=== PATIENT | male | born 1945 | race Caucasian/White ===

== ENCOUNTER 2016-06-07 15:07 | Inpatient (IN) | payer OTHER ==
[~2016-06-07] VITALS: Ht 182.9 cm; Wt 110.7 kg
--- NOTE | ~2016-06-07 | HC ---
[facility] [place] [address] CONSULTATION Name: MICHELLE TORRES Room #: 305-P ADM IN M.R.#: [id number] Admission: 06/07/16 Attend Phys: Seth Chamberlain MD Discharge: Date of : 49 Report #: [id number] THIS REPORT FOR: //name// CC: Singh Chamberlain PRIMARY PHYSICIAN: Singh Armenta DO REFERRAL PHYSICIAN: Isaac Summers MD [facility] REASON FOR REFERRAL: Dyspnea. HISTORY OF PRESENT ILLNESS: The patient is a 70-year-old white male who presented to the emergency room on June 07, with progressive dyspnea. He was admitted for pneumonia. With persistent of dyspnea, a pulmonary consultation was requested. The patient states that he has smoked about a pack a day for most of his life. He has never been diagnosed with chronic lung disease. He does have the early pneumonias and bronchitis, which he gets treated for. About 5 years ago, he was on oxygen temporarily. This was related to other than his lung condition. For the past 5 days, he has noticed progressive dyspnea. Otherwise, denies any fever, chest pain, or productive cough. Otherwise, he denies any history of chronic productive cough. Denies any history of childhood asthma or chronic bronchitis. PAST MEDICAL HISTORY: Notable for peripheral vascular disease, diabetes mellitus type 2, undergoing stent placement in both lower extremities, coronary artery disease with ischemic cardiomyopathy, hypertension, and hyperlipidemia. PAST SURGICAL HISTORY: As mentioned above. ALLERGIES: None to medications. CURRENT MEDICATIONS: List reviewed, include diuretics, aspirin, atorvastatin, Plavix, digoxin, Lasix, lisinopril, nebivolol, DuoNebs, enoxaparin, and Levaquin. FAMILY HISTORY: Notable for heart disease in the father. Mother, she , I believe of old age. SOCIAL HISTORY: He is , has 2 children in good health. 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 The patient states he has been exposed [facility] [address] [place] [address] CONSULTATION Name: MICHELLE TORRES Room #: 305-P [facility] IN ..#: [id number] Admission: 06/07/16 Attend Phys: Seth Chamberlain MD Discharge: Date of : 49 Report #: [id number] to dust including asbestos while working in construction. He drinks occasionally. The patient is retired. REVIEW OF SYSTEMS: As mentioned above, otherwise 10-point system review negative. PHYSICAL EXAMINATION: GENERAL: He is awake, alert, in no apparent distress. VITAL SIGNS: Temperature is 97.4 degrees Fahrenheit, pulse is 71, respiratory rate is 22, blood pressure 122/57 mmHg, saturation 92% on supplemental O2 at 2 liters. HEENT: Normocephalic, atraumatic. NECK: Supple without lymphadenopathy or thyromegaly. CHEST: Breath sounds are moderate with mild expiratory wheezes and coarse breath sounds. CARDIOVASCULAR: Normal S1, S2. There are no murmurs or gallops. There is no JVD. There is no carotid bruit. Pulses are 2+/4+ bilaterally. ABDOMEN: Soft, nontender, no organomegaly or masses. GENITOURINARY: Deferred. RECTAL: Deferred. EXTREMITIES: There is no edema, cyanosis, or clubbing. LABORATORY DATA: Chest x-ray on admission revealed patchy infiltrates. Procalcitonin on admission was 0.1. NT-pro brain natriuretic peptide 2318. Sodium 139, potassium 4.0, chloride 104, CO2 of 27, BUN is 31, creatinine was normal, today is 1.5. WBC 6,500, hemoglobin is 16.3, and platelets are mildly decreased. Albumin 2.6. IMPRESSION: 1. Dyspnea in this 70-year-old white male. He is felt to have pneumonia. He has smoked most of his life. Examination today shows bronchospasm. Suspect part of this may be is likely related to underlying chronic obstructive pulmonary disease with exacerbation. 2. Infiltrates, pneumonia. 3. Likely chronic obstructive pulmonary disease with exacerbation. 4. History of coronary artery disease. 5. Peripheral vascular disease. RECOMMENDATIONS: Agree with current antibiotics, bronchodilators and treatment plans. We will add prednisone to be taken 40 mg once a day for 5 days. The patient will also benefit from inhaled bronchodilators as an outpatient. He states he has never had a pulmonary function, we would recommend this, which can be done as an outpatient. We also discussed the importance of smoke cessation. [address] [address] CONSULTATION Name: MICHELLE TORRES Room #: 305-P ADM IN M.R.#: [id number] Admission: 06/07/16 Attend Phys: Seth Chamberlain MD Discharge: Date of : 49 Report #: [id number] Agree with oximetry, along with saturation on room air. The patient may need oxygen temporarily. Otherwise, the patient is improved from pulmonary standpoint. He can probably be discharged tomorrow if he is stable. I will be happy to see the patient in followup in the office in approximately 2-4 weeks following discharge. Thank you for this consultation. <ELECTRONICALLY SIGNED> By: Koby Rojas MD 06/10/16 1606 1158 1629 Koby Rojas MD /nt
[~2016-06-07 15:07] MED LIST: ACCUPRIL40 MG PO; ASPIR-TRIN325 MG PO; ASPIRIN325; BYSTOLIC10 MG PO; CIALIS20 MG PO; CO Q-1010 MG PO; FISHOIL; FUROSEMIDE 40 M40 M1 PO; GLUCOPHAGE1000 MG PO; GLUCOSAMIN-CHO1 EACH PO; GLYBURIDE OR; HUMALOG100 UNIT/1 SQ; HYDROCODON-ACE1 EAC8 PO; LANOXIN 0.250.25 MG PO; LANTUS SC; LASIX 40 MG TAB40 M2 PO; LEVAQUIN 750 M750 MG PO; LIPITOR40 MG PO; METFORMIN HCL500 MG PO; MULTIPLE VITAM1 EAC3 PO; NAPROSYN500 MG PO; NATURAL VITA100 UNIT PO; NATURAL VITAMI500 MG; OXYBUTYNIN 5 MG5 M1 OR; PLAVIX 75 MG TA75 M1 PO; POTASSIUM20 PO; RELAFEN750 MG PO; TRILIPIX135 MG PO; VASCEPA1 GM PO; VESICARE10 M1 PO; VYTORIN 10-401 EACH PO; ZOLOFT100 MG PO
[2016-06-07 20:00] VITALS: BP 143/79
[2016-06-08] VITALS: BP 124/67
[2016-06-08 04:00] VITALS: BP 131/60
[2016-06-08 05:27] LABS: HEMATOCRIT 46.5 % (42.0-52.0); HEMOGLOBIN 15.9 gm/dL (14.0-18.0); MCH 33.1 pg (26.0-34.0); MCHC 34.2 g/dL (28.0-37.0); MCV 96.6 fL (80.0-100.0); RBC 4.81 mil/uL (4.50-6.00); RDW 15.7 % (10.5-14.5)
[2016-06-08 05:47] LABS: ALBUMIN 2.6 g/dL (3.4-5.0); CREATININE 1.1 mg/dL (0.7-1.3); POTASSIUM 3.7 mmol/L (3.5-5.1); TOTAL BILIRUBIN 0.9 mg/dL (<0.1-1.0); TOTAL PROTEIN 7.1 g/dL (6.4-8.2)
[2016-06-08 08:06] VITALS: BP 146/65
[2016-06-08 15:53] VITALS: BP 110/50
[2016-06-08 19:40] VITALS: BP 123/65
[2016-06-09 03:40] VITALS: BP 119/62
[2016-06-09 06:08] LABS: HEMATOCRIT 48.2 % (42.0-52.0); HEMOGLOBIN 16.3 gm/dL (14.0-18.0); MCH 32.9 pg (26.0-34.0); MCHC 33.9 g/dL (28.0-37.0); RBC 4.97 mil/uL (4.50-6.00); RDW 15.4 % (10.5-14.5); WBC 6.5 thou/uL (4.0-11.0)
[2016-06-09 06:32] LABS: CALCIUM 9.6 mg/dL (8.5-10.1); CREATININE 1.5 mg/dL (0.7-1.3)
[2016-06-09 07:55] VITALS: BP 122/57
[2016-06-09 16:01] VITALS: BP 118/44
[2016-06-09 19:50] VITALS: BP 129/52
[2016-06-10 04:10] VITALS: BP 130/59
[2016-06-10 07:56] VITALS: BP 139/65
[2016-06-10 11:47] LABS: CALCIUM 9.1 mg/dL (8.5-10.1); CREATININE 1.4 mg/dL (0.7-1.3); POTASSIUM 4.5 mmol/L (3.5-5.1)
[2016-06-10] MEDS ORDERED: LEVAQUIN 750 M750 MG PO (12:32)
[2016-06-10 13:13] VITALS: BP 139/65
[2016-06-14 22:08] LABS: INFLUENZA B Negative (Negative); METAPNEUMOVIRUS Negative (Negative)
== END 2016-06-10 16:18 | disposition home or self-care (01) | DRG 177 ==
LOC: 3N 15:07
PROVIDERS: Hospitalist; Internal Medicine
DX: J69.0 Pneumonitis due to inhalation of food and vomit (principal); J96.21 Acute and chronic respiratory failure with hypoxia; I50.23 Acute on chronic systolic (congestive) heart failure; E43 Unspecified severe protein-calorie malnutrition; I42.8 Other cardiomyopathies; I11.0 Hypertensive heart disease with heart failure; E11.51 Type 2 diabetes mellitus with diabetic peripheral angiopathy without gangrene; I25.10 Atherosclerotic heart disease of native coronary artery without angina pectoris; E78.5 Hyperlipidemia, unspecified; F17.210 Nicotine dependence, cigarettes, uncomplicated; I65.29 Occlusion and stenosis of unspecified carotid artery; F32.9 Major depressive disorder, single episode, unspecified; E78.00 Pure hypercholesterolemia, unspecified; J44.9 Chronic obstructive pulmonary disease, unspecified; Z79.899 Other long term (current) drug therapy; Z95.5 Presence of coronary angioplasty implant and graft; Z79.82 Long term (current) use of aspirin; Z85.828 Personal history of other malignant neoplasm of skin; Z82.49 Family history of ischemic heart disease and other diseases of the circulatory system
CPT/HCPCS: 10795

== ENCOUNTER → 2016-11-08 | Outpatient (CLI) | payer OTHER | LOC: MRI 11-02 08:39 | DX: M51.36 Other intervertebral disc degeneration, lumbar region (principal) ==

== ENCOUNTER → 2016-12-14 | Outpatient (CLI) | payer OTHER | LOC: RAD 16:25 | DX: M25.551 Pain in right hip (principal) ==

== ENCOUNTER 2018-02-08 10:41 | Inpatient (IN) | payer OTHER ==
[~2018-02-08] VITALS: Ht 182.9 cm; Wt 50.9 kg
--- NOTE | ~2018-02-08 | EKG ---
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1945 Requested By: Melissa Patel Order Number: [id number] MD: Fritz Juarez Measurements Intervals [place] Rate: 101 P: 48 AL: 164 QRS: -1 QRSD: 123 T: 96 QT: 361 QTc: 468 Interpretive Statements Sinus tachycardia Atrial premature complex Incomplete Left bundle branch block Compared to ECG 01/25/2018 16:37:35 Atrial premature complex(es) now present Electronically Signed On 02-08-2018 16:31:17 RESEARCH LIBRARIAN by Fritz Juarez [email or web address] <ELECTRONICALLY SIGNED> By: Fritz Juarez MD 02/08/18 1631 110 Fritz Juarez MD /EPI
--- NOTE | ~2018-02-08 | HC ---
[facility] [place] [address] CONSULTATION Name: MICHELLE TORRES Room #: 418-P ADM IN M.R.#: [id number] Admission: 02/08/18 Attend Phys: Eliza Holguin MD Discharge: Date of : 49 Report #: [id number] THIS REPORT FOR: //name// CC: Singh Holguin DATE OF SERVICE: 02/08/2018 REFERRAL PHYSICIAN: Dr. Holguin. REASON FOR REFERRAL: Dyspnea. HISTORY OF PRESENT ILLNESS: The patient is a 72-year-old white male who is admitted with progressive dyspnea. A pulmonary consultation was requested. The patient states that he has smoked most of his life. He smokes about a pack a day. He is trying to quit. He has been short of breath for some time. The dyspnea started to worsen over the last several days. With worsening dyspnea, he presented to the Emergency Room. Otherwise, denies any fever, night sweats or chills, chest pain, productive cough. 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 PAST MEDICAL HISTORY: Notable for peripheral artery disease, prior stent placement in the lower extremities, diabetes mellitus, hypertension. ALLERGIES: None. CURRENT MEDICATIONS: Lasix, aspirin, K-Dur, Glucophage, Lipitor, Zoloft, Plavix, Accupril, Bystolic, Vascepa. FAMILY HISTORY: Unknown. SOCIAL HISTORY: He smokes about less than a pack a day, has smoked all his life. Denies any alcohol use. REVIEW OF SYSTEMS: As mentioned above, otherwise 10-point system reviewed and negative. PHYSICAL EXAMINATION: GENERAL: He is awake, alert, in no distress. VITAL SIGNS: Temperature 97.5 degrees Fahrenheit, pulse is 85, respiratory rate is 18, blood pressure is 110/54 mmHg, saturation 98%. [facility] [address] [place] [address] CONSULTATION Name: MICHELLE TORRES Room #: 418-P [facility] IN [facility]#: [id number] Admission: 02/08/18 Attend Phys: Eliza Holguin MD Discharge: Date of : 49 Report #: [id number] HEENT: Normocephalic, atraumatic. NECK: Supple, without lymphadenopathy or thyromegaly. CHEST: Breath sounds are moderate with mild expiratory wheezes. There are no rales. CARDIOVASCULAR: Normal S1, S2. No murmurs or gallop. There is no JVD. There is no carotid bruit. Pulses are 2+/4+ bilaterally. ABDOMEN: Soft, nontender, no organomegaly or masses felt. GENITOURINARY: Deferred. RECTAL: Deferred. EXTREMITIES: There is 1-2+ edema bilaterally. No cyanosis or clubbing. LABORATORY DATA: Shows vascular congestion in both lung bliss, increased in the right lower lobe. Otherwise, no consolidation. Doppler ultrasound was negative for DVT. Echocardiogram showed ejection fraction 20%, pulmonary artery pressure measured 34 mmHg. Electrolytes are normal. Liver enzymes are mildly abnormal. WBC 10,000, hemoglobin 16.9. IMPRESSION: 1. Progressive dyspnea in this 72-year-old white male, probably due to underlying chronic obstructive pulmonary disease. He is suspected to have a component of heart failure. 2. Probable chronic obstructive pulmonary disease, he continues to smoke. The patient has not had formal pulmonary functions. 3. Acute on chronic systolic heart failure, recent echocardiogram showed ejection fraction of 20%. 4. Tobacco abuse. 5. History of coronary artery disease. 6. Peripheral artery disease. 7. Hypertension. 8. Diabetes mellitus type 2. RECOMMENDATION: Agree with bronchodilators, corticosteroids. Diuresis as you are. DVT and GI prophylaxis is recommended. Thank you for this consultation. <ELECTRONICALLY SIGNED> By: Koby Rojas MD 02/08/18 [id number] 1729 182 Koby Rojas MD /nt
--- NOTE | ~2018-02-08 | 2DMMODE ---
[facility] [place] [address] 2 D/M-MODE ECHOCARDIOGRAM Name: MICHELLE TORRES Room #: 418-P ADM IN ..#: [id number] Admission: 02/08/18 Attend Phys: Eliza Holguin MD Discharge: Date of : 49 Date of Service: 02/08/18 1503 Report #: [id number] THIS REPORT FOR: //name// APPROVED REPORT Study performed: 02/08/2018 14:02:09 EXAM: Comprehensive 2D, Doppler, and color-flow Echocardiogram Patient Location: ER Room #: 1 Status: routine BSA: 2.30 HR: 94 bpm BP: 154/79 mmHg Other Information Study Quality: Adequate Indications Congestive Heart Failure COPD Diabetes Dyspnea Hypertension/HDD 2D Dimensions RVDd: 45.63 mm IVSd: 8.41 (7-11mm) LVOT Diam: 23.44 (18-24mm) LVDd: 63.14 mm PWd: 9.71 (7-11mm) Ascending Ao: 34.07 (22-36mm) LVDs: 59.39 (25-40mm) Aortic Root: 26.84 mm IVC: 22.00 mm Volumes Left Atrial Volume (Systole) Single Plane 4CH: 92.99 mL Single Plane 2CH: 115.02 mL LA ESV Index: 47.00 mL/m2 Aortic Valve AoV Peak Wilfredo.: 1.03 m/s AO Peak Gr.: 4.20 mmHg LVOT Max P.51 mmHg LVOT Max V: 0.94 m/s ANH Vmax: 3.94 cm2 Pulmonary Valve [facility] [address] [place] [address] 2 D/M-MODE ECHOCARDIOGRAM Name: MICHELLE TORRES Room #: 418-P ADM IN ..#: [id number] Admission: 02/08/18 Attend Phys: Eliza Holguin MD Discharge: Date of : 49 Date of Service: 02/08/18 1503 Report #: [id number] PV Peak Wilfredo.: 0.68 m/s PV Peak Gr.: 1.87 mmHg Tricuspid Valve TR Peak Iwlfredo.: 2.43 m/s TR Peak Gr.: 23.61 mmHg PA Pressure: 34.00 mmHg Left Ventricle Left ventricle is dilated. There is severe global hypokinesis of the left ventricle. There is normal left ventricular wall thickness. Left ventricular ejection fraction is severely decreased. LVEF is 20%. This study is not technically sufficient to allow evaluation of the LV diastolic function. Right Ventricle Right ventricle is dilated. Right ventricle is mildly hypokinetic. Atria Left atrium is dilated. Right atrium is dilated. Aortic Valve The aortic valve is mildly sclerotic No aortic regurgitation is present. There is no aortic valvular stenosis. Mitral Valve The mitral valve is normal in structure. Mild mitral regurgitation. No evidence of mitral valve stenosis. Tricuspid Valve The tricuspid valve is normal in structure. There is mild tricuspid regurgitation. Estimated PAP 34 mmHg. There is mild pulmonary hypertension. Pulmonic Valve The pulmonary valve is normal in structure. Trace to mild pulmonic regurgitation. Great Vessels The aortic root is normal in size. IVC is dilated and collapses >50% with inspiration. Pericardium There is no pericardial effusion. <Conclusion> [facility] [place] [address] [address] [place] [address] 2 D/M-MODE ECHOCARDIOGRAM Name: MICHELLE TORRES Room #: 418-P ADM IN M.R.#: [id number] Admission: 02/08/18 Attend Phys: Eliza Holguin MD Discharge: Date of : 49 Date of Service: 02/08/18 1503 Report #: [id number] Left ventricular ejection fraction is severely decreased. LVEF is 20%. Both atria are dilated. The aortic valve is mildly sclerotic. No aortic regurgitation or stenosis. The mitral valve is normal in structure. Mild mitral regurgitation. There is mild tricuspid regurgitation. Estimated pulmonary artery pressure of 34 mmHg. There is no pericardial effusion. <ELECTRONICALLY SIGNED> By: Dustin Gutiérrez MD, [facility] 02/08/18 1503 1503 1503 Dustin Gutiérrez MD, FACC /INF
--- NOTE | ~2018-02-08 | CATHLAB ---
[facility] [address] [place] [address] INVASIVE PROCEDURE REPORT Name: MICHELLE TORRES Room #: 218-P DIS IN ..#: [id number] Admission: 02/08/18 Attend Phys: Eliza Holguin MD Discharge: 02/13/18 Date of : 49 Date of Service: 02/14/18 1741 Report #: [id number] THIS REPORT FOR: //name// APPROVED REPORT Study performed: 02/09/2018 17:19:55 Patient Details Patient Status: In-Patient Room #: The patient is a 72 year-old male Event Personnel Ahmet Garcia Radiologist, Isaac Summers Records Analysis Manager, Velma Polo RN RN, Sayda Turcios Monitor, Kathy Nash(R)() Lyndsey, Nohemy Saab Monitor Procedures Performed Right and Left Heart Cath w/or w/o Coronarie [id number] [facility] Hemostasis w/ Mynx 61323 Initial Mod Sed Same Phys/QHP Gr5y 577149 40252 Mod Sed Same Phys/QHP Ea 161437 Indication Chest pain Procedure Narrative The patient was brought electively to the Cardiac Catheterization Laboratory and was prepped and draped in a sterile manner. A 6F 11CM BRITE-TIP sheath was inserted into the RFA. Coronary angiography was performed using coronary diagnostic catheters. The right coronary system was accessed and visualized with a JR 4 catheter. The left coronary system was accessed and visualized with a JL 4 catheter. The left ventricle was accessed and visualized with a Pigtail catheter. Left ventricular/Aortic Valve gradient assessed via catheter pullback. Left ventriculogram was performed in WILLAMS projection. Hemostasis was obtained with manual pressure following sheath removal without any complications. There was no hematoma. Intraoperative Conscious Sedation Fentanyl 25 mcg Versed 3 mg Fluoro Time: 5.80 minutes Dose: DAP 42398.00 cGycm2 Contrast Type and Amount: Visipaque 250 ml Hemodynamics [facility] [place] [address] INVASIVE PROCEDURE REPORT Name: BRIANMICHELLE G Room #: 218-P [facility] IN .R.#: [id number] Admission: 02/08/18 Attend Phys: Eliza Holguin MD Discharge: 02/13/18 Date of : 49 Date of Service: 02/14/18 1741 Report #: [id number] The right atrial mean pressure is 19 mmHg. The right ventricular pressure is 70/14 mmHg. The pulmonary artery pressure is 69/36 mmHg with a mean of 52 mmHg. The mean pulmonary capillary wedge pressure is 37 mmHg. The aortic pressure is 143/77 mmHg with a mean of 105 mmHg. The left ventricular pressure is 153/22 mmHg with a mean of mmHg. The left ventricular end diastolic pressure is 42 mmHg. The cardiac output using thermo method is 5.25 L/min. The cardiac index using thermo method is 2.28 L/min/m2. PCI Technique Lesion Percutaneous coronary intervention was performed on the Unspecified. Conclusion #1 successful right heart catheterization with moderate elevation in pulmonary pressures see above #2 mild left ventricular dilatation with moderately severe global hypokinesis EF 25% range #3 left main giving rise to LAD and circumflex #4 LAD with mild irregularities extends around the apex. Diagonal system mildly disease. #5 circumflex OM nondominant with mild irregularities. #6 large dominant right coronary artery with mild mid vessel irregularity and calcification no occlusive disease PDA ANNE MARIE well preserved Recommendations and plan: Continue aggressive risk factor modification. Diuresis will be undertaken. No indication for coronary intervention. We will follow LV function. Salt and fluid restriction daily weights. <ELECTRONICALLY SIGNED> By: Isaac Summers MD, FACC 02/14/181740 40 40 Isaac Summers MD, FACC /INF
[~2018-02-08 10:41] MED LIST changes: +HUMULIN N100 UNIT/3 SUBQ; +HUMULIN R100 UNIT/M SUBQ; +LANOXIN 0.250.25 M1 PO
[2018-02-08 10:42] VITALS: BP 154/79
[2018-02-08 11:15] LABS: ABSOLUTE NEUTROPHILS 7.2 thou/uL (1.4-8.2); BASOPHILS 1.3 % (0.0-2.0); EOSINOPHILS 1.2 % (0.0-3.0); HEMATOCRIT 50.7 % (42.0-52.0); HEMOGLOBIN 16.9 gm/dL (14.0-18.0); LYMPHOCYTES 18.1 % (24.0-44.0); MCH 31.5 pg (26.0-34.0); MCHC 33.3 g/dL (28.0-37.0); MCV 94.8 fL (80.0-100.0); PLATELET COUNT 118 thou/uL (150-400); POLYS 72.4 % (36.0-66.0); RBC 5.35 mil/uL (4.50-6.00); RDW 15.1 % (10.5-14.5)
[2018-02-08 11:23] LABS: ANION GAP 7 mmol/L (7-16); BUN 9 mg/dL (7-18); CALCIUM 9.2 mg/dL (8.5-10.1); CHLORIDE 102 mmol/L (98-107); CO2 30 mmol/L (21-32); GLUCOSE 225 mg/dL (74-106); POTASSIUM 4.6 mmol/L (3.5-5.1); SODIUM 139 mmol/L (136-145)
[2018-02-08 11:32] LABS: SGOT 15 U/L (15-37); SGPT 20 U/L (30-65); TOTAL BILIRUBIN 0.8 mg/dL (<0.1-1.0); TOTAL PROTEIN 7.9 g/dL (6.4-8.2); TROPONIN-I <0.06 ng/mL (<0.06)
[2018-02-08 11:51] LABS: BE(vivo) 2.1 mmol/L (-2 to +3); HCO3 30.5 mmol/L (22.0-26.0); PCO2 VENOUS 62.3 mmHg (41.0-51.0)
[2018-02-08 13:16] LABS: CHOLESTEROL 279 mg/dL (<200); HDL CHOLESTEROL 50 mg/dL (>40); LDL CHOLESTEROL 192 mg/dL (<100); TC:HDL 5.6 Ratio (Not establshd); TRIGLYCERIDE 185 mg/dL (<150); VLDL 37 mg/dL (<40)
[2018-02-08 13:39] VITALS: BP 154/79
[2018-02-08 14:38] VITALS: BP 121/55
[2018-02-08 15:58] VITALS: BP 113/54
[2018-02-08 18:53] LABS: URINE BILIRUBIN NEGATIVE (Negative); URINE BLOOD TRACE (Negative); URINE CLARITY CLEAR; URINE COLOR YELLOW; URINE GLUCOSE-RANDOM* 3+ (Negative); URINE KETONES NEGATIVE (Negative); URINE LEUKOCYTES NEGATIVE (Negative); URINE NITRITE NEGATIVE (Negative); URINE PROTEIN (DIPSTICK) 2+ (Negative); URINE UROBILINOGEN 0.2 E.U./dl (0.2-1.0)
[2018-02-08 19:05] LABS: BACTERIA None Seen /HPF (None Seen); CRYSTALS None Seen /LPF (None Seen); HYALINE CASTS 0-3 Few /LPF (None Seen); SQUAMOUS 0-3 Few /LPF (0-3); URINE RBC 0-2 Rare /HPF (0-2); URINE WBC None Seen /HPF (0-5)
[2018-02-08 19:10] VITALS: BP 131/70
[2018-02-09 04:06] VITALS: BP 131/66
[2018-02-09 05:06] LABS: HEMATOCRIT 46.6 % (42.0-52.0); HEMOGLOBIN 15.4 gm/dL (14.0-18.0); MCH 31.6 pg (26.0-34.0); MCV 95.7 fL (80.0-100.0); RBC 4.87 mil/uL (4.50-6.00); RDW 15.2 % (10.5-14.5); WBC 8.2 thou/uL (4.0-11.0)
[2018-02-09 05:14] LABS: CALCIUM 9.3 mg/dL (8.5-10.1); CREATININE 1.3 mg/dL (0.7-1.3)
[2018-02-09 08:00] VITALS: BP 129/69
[2018-02-09 20:22] VITALS: BP 142/58
[2018-02-10] VITALS (7 sets, daily range): BP systolic 104–137; BP diastolic 53–82
[2018-02-10 05:22] LABS: HEMATOCRIT 43.9 % (42.0-52.0); HEMOGLOBIN 14.7 gm/dL (14.0-18.0); MCH 32.1 pg (26.0-34.0); MCHC 33.5 g/dL (28.0-37.0); MCV 95.8 fL (80.0-100.0); RBC 4.58 mil/uL (4.50-6.00); RDW 15.2 % (10.5-14.5); WBC 15.4 thou/uL (4.0-11.0)
[2018-02-10 05:24] LABS: CALCIUM 8.6 mg/dL (8.5-10.1); CREATININE 1.5 mg/dL (0.7-1.3); MAGNESIUM 1.9 mg/dL (1.8-2.4); POTASSIUM 4.5 mmol/L (3.5-5.1)
[2018-02-11 05:27] VITALS: BP 119/59
[2018-02-11 05:47] LABS: CALCIUM 8.5 mg/dL (8.5-10.1); CREATININE 1.7 mg/dL (0.7-1.3)
[2018-02-11 09:07] VITALS: BP 141/64
[2018-02-11 12:00] VITALS: BP 178/52
[2018-02-11 16:00] VITALS: BP 108/57
[2018-02-11 19:19] VITALS: BP 114/55
[2018-02-12 04:48] VITALS: BP 123/59
[2018-02-12 04:55] LABS: ABSOLUTE NEUTROPHILS 8.5 thou/uL (1.4-8.2); BASOPHILS 0.5 % (0.0-2.0); EOSINOPHILS 0.3 % (0.0-3.0); HEMATOCRIT 43.1 % (42.0-52.0); HEMOGLOBIN 14.5 gm/dL (14.0-18.0); LYMPHOCYTES 15.8 % (24.0-44.0); MCH 32.1 pg (26.0-34.0); MCHC 33.5 g/dL (28.0-37.0); MCV 95.9 fL (80.0-100.0); MONOCYTES 9.6 % (1.0-8.0); PLATELET COUNT 112 thou/uL (150-400); POLYS 73.8 % (36.0-66.0); RDW 15.7 % (10.5-14.5); WBC 11.5 thou/uL (4.0-11.0)
[2018-02-12 05:07] LABS: CALCIUM 8.7 mg/dL (8.5-10.1); CREATININE 1.6 mg/dL (0.7-1.3); MAGNESIUM 2.4 mg/dL (1.8-2.4); POTASSIUM 4.6 mmol/L (3.5-5.1)
[2018-02-12 05:15] LABS: BE(vivo) 1.6 mmol/L (-2 to +3); HCO3 28.2 mmol/L (22.0-26.0); PCO2 52.3 mmHg (35.0-45.0); PO2 62.6 mmHg (80.0-100.0); sO2 90.6 % (92.0-98.0)
[2018-02-12 08:19] VITALS: BP 125/55
[2018-02-12 12:11] VITALS: BP 111/54
[2018-02-12 16:00] VITALS: BP 135/63
[2018-02-12 20:18] VITALS: BP 142/56
[2018-02-13 04:25] LABS: CALCIUM 8.7 mg/dL (8.5-10.1); CREATININE 1.4 mg/dL (0.7-1.3); POTASSIUM 4.1 mmol/L (3.5-5.1)
[2018-02-13 04:32] VITALS: BP 135/74
[2018-02-13 04:41] LABS: HEMATOCRIT 43.3 % (42.0-52.0); HEMOGLOBIN 14.5 gm/dL (14.0-18.0); MCH 32.2 pg (26.0-34.0); MCHC 33.6 g/dL (28.0-37.0); MCV 96.1 fL (80.0-100.0); RBC 4.51 mil/uL (4.50-6.00); RDW 15.5 % (10.5-14.5); WBC 7.8 thou/uL (4.0-11.0)
[2018-02-13 08:00] VITALS: BP 129/67
[2018-02-13] MEDS ORDERED: DEMADEX20 MG PO (08:55)
[2018-02-13] MEDS ORDERED: AMBIEN 10 MG TA10 MG PO (09:30)
[2018-02-13] MEDS ORDERED: PREDNISONE 20 M20 M1 PO (09:30)
[2018-02-13] MEDS ORDERED: AUGMENTIN 500-1 EACH PO (09:30)
[2018-02-13] MEDS ORDERED: NICOTINE TRANSD21 M1 TRANSDERM (09:30)
[2018-02-13] MEDS ORDERED: IPRAT-ALBUT 0.5-3 ML INH (09:30)
[2018-02-13 10:12] VITALS: BP 113/56
[2018-02-13 10:51] VITALS: BP 113/56
[2018-02-13 10:55] VITALS: BP 113/56
== END 2018-02-13 11:01 | disposition home or self-care (01) | DRG 853 ==
LOC: ER 10:41 → EROBS 11:46 → 4E 11:46 → 2N 11:46 → 4E 14:57 → 2N 02-09 20:19 → ENTRNSPT 02-13 10:50 → EDTRNSPTSTS 02-13 10:55 → 2N 02-13 11:01
PROVIDERS: Internal Medicine; Nurse Practitioner Adult Health; Student in an Organized Health Care Education/Training Program
DX: A41.9 Sepsis, unspecified organism (principal); I50.23 Acute on chronic systolic (congestive) heart failure; J18.9 Pneumonia, unspecified organism; J96.21 Acute and chronic respiratory failure with hypoxia; T82.856A Stenosis of peripheral vascular stent, initial encounter; J44.1 Chronic obstructive pulmonary disease with (acute) exacerbation; N17.9 Acute kidney failure, unspecified; J44.0 Chronic obstructive pulmonary disease with (acute) lower respiratory infection; J20.9 Acute bronchitis, unspecified; I11.0 Hypertensive heart disease with heart failure; I25.10 Atherosclerotic heart disease of native coronary artery without angina pectoris; E11.51 Type 2 diabetes mellitus with diabetic peripheral angiopathy without gangrene; F17.210 Nicotine dependence, cigarettes, uncomplicated; I65.29 Occlusion and stenosis of unspecified carotid artery; E78.00 Pure hypercholesterolemia, unspecified; E78.5 Hyperlipidemia, unspecified; K59.00 Constipation, unspecified; I25.5 Ischemic cardiomyopathy; I70.291 Other atherosclerosis of native arteries of extremities, right leg; D72.829 Elevated white blood cell count, unspecified; I70.292 Other atherosclerosis of native arteries of extremities, left leg; T38.0X5A Adverse effect of glucocorticoids and synthetic analogues, initial encounter; G47.33 Obstructive sleep apnea (adult) (pediatric); T50.2X5A Adverse effect of carbonic-anhydrase inhibitors, benzothiadiazides and other diuretics, initial encounter; Y83.8 Other surgical procedures as the cause of abnormal reaction of the patient, or of later complication, without mention of misadventure at the time of the procedure; Z82.49 Family history of ischemic heart disease and other diseases of the circulatory system; Z71.6 Tobacco abuse counseling; Z79.01 Long term (current) use of anticoagulants; Z79.82 Long term (current) use of aspirin; Z79.899 Other long term (current) drug therapy; Z81.8 Family history of other mental and behavioral disorders; Z83.3 Family history of diabetes mellitus; Z95.820 Peripheral vascular angioplasty status with implants and grafts; Z99.81 Dependence on supplemental oxygen; Y92.89 Other specified places as the place of occurrence of the external cause
CPT/HCPCS: 10081; 10183; 10783

== ENCOUNTER 2018-05-11 17:34 | Inpatient (IN) | payer OTHER ==
[~2018-05-11] VITALS: Ht 182.9 cm; Wt 114.8 kg
[~2018-05-11 17:34] MED LIST changes: +AMBIEN 10 MG TA10 MG PO; +AUGMENTIN 500-1 EACH PO; +DEMADEX20 MG PO; +IPRAT-ALBUT 0.5-3 ML INH; +NICOTINE TRANSD21 M1 TRANSDERM; +PREDNISONE 20 M20 M1 PO
[2018-05-11 17:35] VITALS: BP 157/81
[2018-05-11 17:54] LABS: HEMATOCRIT 47.5 % (42.0-52.0); HEMOGLOBIN 15.9 gm/dL (14.0-18.0); MCH 31.7 pg (26.0-34.0); MCHC 33.4 g/dL (28.0-37.0); MCV 94.7 fL (80.0-100.0); PLATELET COUNT 170 thou/uL (150-400); RBC 5.02 mil/uL (4.50-6.00); RDW 15.4 % (10.5-14.5); WBC 16.7 thou/uL (4.0-11.0)
[2018-05-11 18:01] LABS: ANION GAP 8 mmol/L (7-16); BUN 19 mg/dL (7-18); CALCIUM 9.2 mg/dL (8.5-10.1); CHLORIDE 99 mmol/L (98-107); CO2 28 mmol/L (21-32); CREATININE 1.1 mg/dL (0.7-1.3); GLUCOSE 389 mg/dL (74-106); POTASSIUM 4.2 mmol/L (3.5-5.1); SODIUM 135 mmol/L (136-145)
[2018-05-11 18:10] LABS: ALBUMIN 3.4 g/dL (3.4-5.0); APTT 29.1 Seconds (24.5-32.8); PROTIME 10.3 Seconds (9.3-11.4); SGOT 16 U/L (15-37); TOTAL BILIRUBIN 0.8 mg/dL (<0.1-1.0); TOTAL PROTEIN 8.5 g/dL (6.4-8.2); TROPONIN-I <0.06 ng/mL (<0.06)
[2018-05-11 18:29] LABS: BE(vivo) -2.3 mmol/L (-2 to +3); HCO3 26.4 mmol/L (22.0-26.0); PCO2 61.5 mmHg (35.0-45.0); PO2 309.2 mmHg (80.0-100.0); sO2 99.6 % (92.0-98.0)
[2018-05-11 18:30] LABS: URINE BILIRUBIN NEGATIVE (Negative); URINE BLOOD 1+ (Negative); URINE CLARITY CLEAR; URINE COLOR YELLOW; URINE GLUCOSE-RANDOM* 3+ (Negative); URINE KETONES NEGATIVE (Negative); URINE LEUKOCYTES-REFLEX NEGATIVE (Negative); URINE NITRITE-REFLEX NEGATIVE (Negative); URINE PROTEIN (DIPSTICK) 3+ (Negative); URINE SPECIFIC GRAVITY 1.025 (1.005-1.035); URINE UROBILINOGEN 0.2 E.U./dl (0.2-1.0)
[2018-05-11 18:30] LABS: pH 7.251 (7.360-7.450)
[2018-05-11 18:43] LABS: BACTERIA-REFLEX None Seen /HPF (None Seen); CASTS None Seen /LPF (None Seen); CRYSTALS None Seen /LPF (None Seen); SQUAMOUS 0-3 Few /LPF (0-3); URINE RBC 0-2 Rare /HPF (0-2); URINE WBC-REFLEX None Seen /HPF (0-5)
[2018-05-11 19:01] LABS: SGPT 22 U/L (30-65)
[2018-05-11 19:57] VITALS: BP 140/68
[2018-05-11] MEDS ORDERED: ZETIA10 MG PO (21:32)
[2018-05-11] MEDS ORDERED: ESCITALOPRAM OX20 MG PO (21:32)
[2018-05-11] MEDS ORDERED: TRESIBA FL200 UNIT/1 (21:32)
[2018-05-11] MEDS ORDERED: FLOMAX0.4 MG PO (21:34)
[2018-05-11] MEDS ORDERED: SYNTHROID125 MC1 PO (21:34)
[2018-05-11] MEDS ORDERED: DIGOXIN250 MCG PO (21:44)
[2018-05-11] MEDS ORDERED: POTASSIUM20 PO (21:45)
[2018-05-11] MEDS ORDERED: TRELEGY ELLIPT1 EACH IH (21:56)
[2018-05-11] MEDS ORDERED: TYLENOL325 MG PO (21:58)
[2018-05-11 23:49] VITALS: BP 137/63
[2018-05-12 03:48] VITALS: BP 148/81
[2018-05-12 04:28] LABS: HEMATOCRIT 41.2 % (42.0-52.0); MCH 31.9 pg (26.0-34.0); MCV 93.9 fL (80.0-100.0); RBC 4.38 mil/uL (4.50-6.00); RDW 15.4 % (10.5-14.5); WBC 5.5 thou/uL (4.0-11.0)
[2018-05-12 04:40] LABS: CALCIUM 8.8 mg/dL (8.5-10.1); CREATININE 1.3 mg/dL (0.7-1.3); POTASSIUM 4.6 mmol/L (3.5-5.1)
--- NOTE | 2018-05-12 05:05 | NUR ---
received via cart from ER at 1954. able to stand, walk with steady gait to bed. alert, oriented x 4. daughter took his glasses home, limited eyesight. oriented to room, discussed orders. chris bashir NP saw him in his room. refused BIPAP after about 1.5 hrs. respiratory therapy aware. now on 6liters nc (home oxygen is 4liters).
[2018-05-12 07:47] VITALS: BP 144/81
--- NOTE | 2018-05-12 07:57 | EKG ---
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1945 Requested By: Kailash Matthews Order Number: [id number] MD: Dustin Gutiérrez Measurements Intervals [place] Rate: 115 P: 32 GA: 131 QRS: 52 QRSD: 111 T: 76 QT: 337 QTc: 466 Interpretive Statements Sinus tachycardia Poor R wave progression Nonspecific ST and T wave abnormality Nonspecific intraventricular conduction delay Compared to ECG 02/08/2018 11:05:16 No significant change was found Electronically Signed On 05-12-2018 7:57:41 CDT by Dustin Gutiérrez [email or web address] ��������������������������������������������� <ELECTRONICALLY SIGNED> ���������������������������������������� By: Dustin Gutiérrez MD, [facility] ��������������������������������������������� 05/12/18 0757 1756 1756 Dustin Gutiérrez MD, [facility] /EPI
--- NOTE | 2018-05-12 10:34 | 2DMMODE ---
[facility] [address] [place] [address] 2 D/M-MODE ECHOCARDIOGRAM Name: MICHELLE TORRES Room #: 360-P ADM IN ..#: [id number] ������������� Admission: 05/11/18 ������������� Attend Phys: Castro Lew MD Discharge: ��� ������������� ��� Date of : 49 Date of Service: 05/12/18 1034 �� Report #: [id number] �������� ��������������������������������������������[id number] THIS REPORT FOR: //name// APPROVED REPORT Study performed: 05/12/2018 09:24:21 EXAM: Comprehensive 2D, Doppler, and color-flow Echocardiogram Patient Location: Echo lab Room #: 360 Status: routine BSA: 2.35 HR: 91 bpm BP: 144/81 mmHg Rhythm: Sinus arrhythmia Other Information Study Quality: Adequate Indications Shortness of breath. Hx: CHF, CM, HTN, HLP, DM, PVD, COPD. 2D Dimensions RVDd: 43.42 mm IVSd: 9.38 (7-11mm) LVOT Diam: 21.93 (18-24mm) LVDd: 62.54 mm PWd: 9.90 (7-11mm) Ascending Ao: 33.63 (22-36mm) LVDs: 55.78 (25-40mm) Aortic Root: 30.83 mm Volumes Left Atrial Volume (Systole) Single Plane 4CH: 87.73 mL Single Plane 2CH: 93.23 mL LA ESV Index: 40.00 mL/m2 Aortic Valve AoV Peak Wilfredo.: 1.31 m/s AO Peak Gr.: 6.91 mmHg LVOT Max P.51 mmHg LVOT Max V: 0.94 m/s ANH Vmax: 2.69 cm2 Mitral Valve E/A Ratio: 1.9 MV Decel. Time: 175.21 ms MV E Max Wilfredo.: 1.12 m/s [facility] [place] [address] 2 D/M-MODE ECHOCARDIOGRAM Name: MICHELLE TORRES Room #: 360-P [facility] IN .R.#: [id number] ������������� Admission: 05/11/18 ������������� Attend Phys: Castro Lew MD Discharge: ��� ������������� ��� Date of : 49 Date of Service: 05/12/18 1034 �� Report #: [id number] �������� ��������������������������������������������[id number] MV A Wilfredo.: 0.59 m/s MV PHT: 50.81 ms IVRT: 76.12 ms Pulmonary Valve PV Peak Wilfredo.: 0.89 m/s PV Peak Gr.: 3.15 mmHg Pulmonary Vein P Vein S: 0.68 m/s P Vein D: 0.63 m/s P Vein S/D Ratio: 1.08 Tricuspid Valve TR Peak Wilfredo.: 3.04 m/s RAP Estimate: 10.00 mmHg TR Peak Gr.: 37.07 mmHg PA Pressure: 47.00 mmHg Left Ventricle Left ventricle is moderately dilated. There is global hypokinesis of the left ventricle. There is normal left ventricular wall thickness. Left ventricular systolic function is severely decreased. LVEF is 25-30%. Moderate diastolic dysfunction is present (pseudonormal filling). Right Ventricle Right ventricle is mildly dilated. The right ventricular systolic function is normal. Atria Left atrium is moderately dilated. Right atrium is mildly dilated. Aortic Valve The aortic valve is normal in structure. No aortic regurgitation is present. There is no aortic valvular stenosis. Mitral Valve Mild mitral annular calcification. Mild mitral regurgitation. Tricuspid Valve The tricuspid valve is normal in structure. Trace tricuspid regurgitation. Estimated PAP is 45mmHg. Pulmonic Valve The pulmonary valve is normal in structure. [place] [address] 2 D/M-MODE ECHOCARDIOGRAM Name: MICHELLE TORRES Room #: 360-P [facility] IN ..#: [id number] ������������� Admission: 05/11/18 ������������� Attend Phys: Castro Lew MD Discharge: ��� ������������� ��� Date of : 49 Date of Service: 05/12/18 1034 �� Report #: [id number] �������� ��������������������������������������������[id number] valvular regurgitation. Great Vessels The aortic root is normal in size. IVC is dilated and collapses >50% with inspiration. Pericardium There is no pericardial effusion. <Conclusion> Left ventricular systolic function is severely decreased. LVEF is 25-30%. Moderate diastolic dysfunction The aortic valve is normal in structure. No aortic regurgitation or stenosis. Mild mitral annular calcification. Mild mitral regurgitation. Trace tricuspid regurgitation. Estimated pulmonary artery pressure of 45mmHg. There is no pericardial effusion. ��������������������������������������������� <ELECTRONICALLY SIGNED> ���������������������������������������� By: Dustin Gutiérrez MD, FACC ��������������������������������������������� 05/12/18 1034 33 Dustin Gutiérrez MD, FACC /INF
[2018-05-12 11:59] VITALS: BP 137/61
--- NOTE | 2018-05-12 13:06 | NUR ---
ASSESSMENT: CM REVIEWED CHART AND MET WITH PATIENT AT THE BEDSIDE. PT IS ALERT AND ORIENTED X4. PT WAS ADMITTED WITH SYNCOPE/BRADYCARDIA. PT REPORTS LIVING IN A HOME WITH HIS . PT REPORTS THAT HE HAS A RAMP TO ENTER THE HOME AND NO STEPS HE USES ONCE INSIDE. PT STATES THAT HE HAS A WALKER AT HOME THAT HE USES AT TIME. PT STATES HE IS INDEPENDENT WITH ADLS AND HAS A SHOWER CHAIR. PT REPORTS BEING ON 4L OXYGEN AT HIS BASELINE AND IS SUPPLIED THROUGH [employer]. PT REPORTS HE ALSO HAS A WHEELCHAIR AT HOME BUT DOES NOT USE IT. CM DISCUSSED ROLE. PT REPORTS HE HAS HAD [facility] IN THE PAST BUT NOT CURRENTLY. PT DOES NOT ANTICIPATE NEEDING HH AT DISCHARGE AND REPORTS HE PLANS ON RETURNING HOME WITH NO NEEDS. CM WILL CONTINUE TO FOLLOW TO ASSIST NEEDED.
[2018-05-12] MEDS ORDERED: NOVOLOG100 UNIT/1 SUBQ (13:28)
[2018-05-12 14:49] VITALS: BP 143/63
--- NOTE | 2018-05-12 15:42 | NUR ---
Assumed care of patient at 0700. Vitals have been stable. Maintaining oxygen saturations on oxygen; able to titrate down to 5L NC today. Patient still SOB with exertion. Denies pain. Patient states is feeling better than admission and feels breathing is improving. Up ad claudia in room with steady gait. Voiding adequately. Shower today. This afternoon, patient called out stating he started to feel worse again, "like I was when I came in." Feels SOB. O2 sat within normal limits on 5L NC. Encouraged to try Bipap. Patient on bipap for about 10 minutes and then requested to take off. Spoke with Dr. Rojas regarding shortness of breath and no breathing treatments ordered. Dr. Rojas put orders in. Breathing treatment given. Patient also states he feels dizzy / light headed. BP and HR within normal limits. Blood sugar taken and elevated. Patient states this happens at home at times and he takes aspirin and this will help. Also states this can happen when he feels constipated. Updated Dr. Lew. He is going to put in order for laxatives and stool softeners to see if this helps. Patient feels a little better after breathing treatments and states he will feel much better after getting a laxative. Slowly progressing towards POC . Will continue to monitor.
[2018-05-12 17:54] VITALS: BP 132/76
[2018-05-12 19:35] VITALS: BP 123/75
[2018-05-13 03:15] VITALS: BP 132/63
--- NOTE | 2018-05-13 03:35 | NUR ---
Received pt. on 5L/NC with O2 sat in the low 90's. Shortness of breath with exertion. Pt. very concern about his high BG and the amount of insulin he is receiving is less here than what he's on at home. Pt. given education about sliding scale , scheduled long acting insulin and monitoring BG trend while on IV steroids and that it will be adjusted accordingly. Daughter Ramo called to an update on pt's condition. Bed alarm on initially as pt. reported getting dizzy occasionally. He stood up with steady gait when he was weighed this am. He calls appropriately if he needs assistance. Reminded pt. about 1500 ml fluid restriction and verbalized understanding. He stated he slept fair during the night and does not feel as grouchy anymore like he did at HS. Making progress towards care plan goals.
[2018-05-13 03:48] LABS: CALCIUM 8.7 mg/dL (8.5-10.1); CREATININE 1.5 mg/dL (0.7-1.3); POTASSIUM 4.9 mmol/L (3.5-5.1)
[2018-05-13 03:53] LABS: HEMATOCRIT 39.3 % (42.0-52.0); HEMOGLOBIN 13.2 gm/dL (14.0-18.0); MCH 31.8 pg (26.0-34.0); MCHC 33.7 g/dL (28.0-37.0); MCV 94.4 fL (80.0-100.0); RBC 4.17 mil/uL (4.50-6.00); RDW 15.1 % (10.5-14.5)
[2018-05-13 07:33] VITALS: BP 138/55
[2018-05-13 11:25] VITALS: BP 123/49
--- NOTE | 2018-05-13 14:47 | HC ---
[facility] [place] [address] CONSULTATION Name: MICHELLE TORRES Room #: 360-P [facility] IN .R.#: [id number] Admission: 05/11/18 ������������������ Attend Phys: Castro Lew MD Discharge: ������������������ Date of : 49 Report #: [id number] THIS REPORT FOR: //name// CC: Singh Lew DATE OF SERVICE: 05/12/2018 PULMONARY CONSULTATION REFERRING PHYSICIAN: Dr. Solo. REASON FOR REFERRAL: Dyspnea. HISTORY OF PRESENT ILLNESS: The patient is a 72-year-old white male who presents to the ED with progressive dyspnea. The patient has known COPD. A pulmonary consultation was requested. The patient was previously seen during his last hospitalization in January for COPD exacerbation. The patient has smoked most of his life. He has never seen a linoleum floor layer. Since the last hospitalization, he stopped smoking for 2 months until he felt well and started smoking again. He presents on this occasion with dyspnea that started 1 day prior to presentation. Otherwise, denies any fever, night sweats or chills, chest pain or productive cough. PAST MEDICAL HISTORY: Notable for COPD as mentioned above, diabetes mellitus type 2, peripheral artery disease, status post stent in the lower extremities, history of heart failure. PAST SURGICAL HISTORY: As mentioned above. ALLERGIES: None to medications. HOME MEDICATIONS: Include DuoNeb, nicotine transdermal, Ambien, prednisone, Humulin insulin supplements, torsemide, aspirin, Glucophage, VESIcare, Lipitor, Zoloft, Plavix, Vascepa, Accupril, Bystolic. FAMILY HISTORY: Noncontributory. SOCIAL HISTORY: Has smoked about 60 years, quit for about 2 months recently only to resume smoking again. He denies any alcohol use. [facility] [address] [place] [address] CONSULTATION Name: MICHELLE TORRES Room #: 360-P [facility] IN ..#: [id number] Admission: 05/11/18 ������������������ Attend Phys: Castro Lew MD Discharge: ������������������ Date of : 49 Report #: [id number] REVIEW OF SYSTEMS: As mentioned above, otherwise 10-point system review negative. PHYSICAL EXAMINATION: GENERAL: He is awake, alert, in no distress. VITAL SIGNS: Temperature is 98 degrees Fahrenheit, pulse is 74, respiratory rate is 24, blood pressure 137/61 mmHg, saturation is 98%. HEENT: Normocephalic, atraumatic. NECK: Supple, without any lymphadenopathy or thyromegaly. CHEST: Breath sounds are good with mild expiratory wheezes. No rales. CARDIOVASCULAR: Normal S1, S2. No murmurs or gallop. There is no JVD. There is no carotid bruit. Pulses are 2+/4+ bilaterally. ABDOMEN: Obese, soft, nontender. No organomegaly or masses felt. GENITOURINARY: Deferred. RECTAL: Deferred. EXTREMITIES: There is no edema, cyanosis or clubbing. LABORATORY DATA: Portable chest x-ray shows chronic interstitial changes, slight increase in right lower lobe. Echocardiogram showed ejection fraction reduced to 25% with moderate diastolic dysfunction, pulmonary artery pressure measuring 45 mmHg. BNP is 5500. Influenza A and B swab is negative. Electrolytes normal except for creatinine of 1.3. Liver enzymes are grossly unremarkable. Glucose 389. WBC 16,700 without significant bandemia. Arterial blood gas revealed pH 7.25, pCO2 of 61, pO2 of 309 on FiO2 100%. IMPRESSION: 1. Acute on chronic hypercapnic hypoxic respiratory failure in this 72-year-old white male. He has a history of chronic obstructive pulmonary disease. He resumed smoking again. Chest x-ray suggests possible increase in right lower lobe infiltrates. Etiology due to exacerbation of chronic obstructive pulmonary disease along with possible pneumonia. 2. Chronic obstructive pulmonary disease exacerbation, severity unknown. 3. Tobacco abuse. 4. Apparent chronic hypercapnic respiratory failure. 5. Cardiomyopathy, ejection fraction 25-30%, etiology undetermined, but suspect ischemic. 6. Peripheral artery disease, status post bilateral lower extremity stents. 7. Moderate diastolic dysfunction with possible component of acute on chronic diastolic heart failure. 8. Pulmonary hypertension, group 2/3 due to cardiomyopathy and pulmonary disease. RECOMMENDATION: Continue bronchodilators, corticosteroids, gentle diuresis. Broad spectrum antibiotic is recommended to cover for nosocomial infections [address] [address] CONSULTATION Name: MICHELLE TORRES Room #: 360-P [facility] M.R.#: [id number] Admission: 05/11/18 ������������������ Attend Phys: Castro Lew MD Discharge: ������������������ Date of : 49 Report #: [id number] since the patient has been hospitalized within the last 3 months. Deep venous thrombosis and gastrointestinal prophylaxis recommended. Thank you for this consultation. ��������������������������������������������� <ELECTRONICALLY SIGNED> ���������������������������������������� By: Koby Rojas MD ��������������������������������������������� 05/13/18 1447 1456 2149 Koby Rojas MD /nt
[2018-05-13 16:11] VITALS: BP 137/42
--- NOTE | 2018-05-13 18:28 | NUR ---
Assumed care of PT at 0700. Pt alert and oriented in no acute distress. diminished lung sounds w/ occasional wheezes. pt concerned with receiving enough insulin - regimen increased and sugars showing improvement. this afternoon pt reports not feeling well for a period of time, physician evaluated at bedside, now feeling better. clarified heparin/plavix order with physician - ok to give both per physician. calls out appropriately. vitals stable. pt progressing toward poc goals.
[2018-05-13 20:00] VITALS: BP 114/43
[2018-05-14 04:45] VITALS: BP 116/45
[2018-05-14 06:07] LABS: HEMATOCRIT 39.6 % (42.0-52.0); HEMOGLOBIN 13.4 gm/dL (14.0-18.0); MCH 32.1 pg (26.0-34.0); MCHC 33.8 g/dL (28.0-37.0); MCV 94.9 fL (80.0-100.0); RBC 4.18 mil/uL (4.50-6.00); RDW 15.5 % (10.5-14.5); WBC 10.7 thou/uL (4.0-11.0)
[2018-05-14 06:20] LABS: CALCIUM 8.3 mg/dL (8.5-10.1); CREATININE 1.7 mg/dL (0.7-1.3); POTASSIUM 4.6 mmol/L (3.5-5.1)
--- NOTE | 2018-05-14 06:32 | NUR ---
Pt. stated he slept well during the night.Maintaining O2 sat in the low 90's on 5L/NC. Shortness of breath with exertion but improving per pt. Diuresing well and weight down from 255.7 lbs. to 253 lbs. today. Calls appropriately if he needs assistance. Making progress towards care plan goals.
[2018-05-14 07:30] VITALS: BP 112/49
[2018-05-14 16:00] VITALS: BP 117/48
[2018-05-14 20:48] VITALS: BP 115/54
[2018-05-15 05:10] VITALS: BP 125/66
--- NOTE | 2018-05-15 05:14 | NUR ---
MOVING TOWARDS DC GOALS PT STATES HE IS FEELING BETTER, BUT STILL NOT GETTING THE RESULTS FOR THE INSULIN HE IS BEING GIVEN. LAST ACCU CHECK WAS 311 AND GAVE 60 UNITS LANTUS AND 20 UNITS SHORT ACTING. WILL FOLLOW EMAR FOR THIS AM DOSING. FLUID RESTRICTION OF 1500 BEING FOLLOWED. PT IS HAVING GOOD URINE OUTPUT. IVPB ZOSIN INFUSING. HOURLY ROUNDING.
[2018-05-15 05:44] LABS: HEMOGLOBIN 13.1 gm/dL (14.0-18.0); MCH 31.6 pg (26.0-34.0); MCHC 33.6 g/dL (28.0-37.0); MCV 94.3 fL (80.0-100.0); RBC 4.14 mil/uL (4.50-6.00); RDW 15.6 % (10.5-14.5); WBC 9.5 thou/uL (4.0-11.0)
[2018-05-15 05:58] LABS: CALCIUM 8.2 mg/dL (8.5-10.1); CREATININE 1.9 mg/dL (0.7-1.3); POTASSIUM 4.9 mmol/L (3.5-5.1)
[2018-05-15 08:43] VITALS: BP 132/65
[2018-05-15 11:29] VITALS: BP 110/53
[2018-05-15] MEDS ORDERED: AUGMENTIN 875-1 EACH PO (13:46)
[2018-05-15] MEDS ORDERED: TORSEMIDE20 MG PO (13:47)
[2018-05-15] MEDS ORDERED: PROTONIX40 M1 PO (13:48)
[2018-05-15] MEDS ORDERED: POTASSIUM20 PO (13:49)
[2018-05-15] MEDS ORDERED: PREDNISONE 10 M10 MG PO (13:50)
[2018-05-15 14:40] VITALS: BP 110/53
== END 2018-05-15 15:15 | disposition home or self-care (01) | DRG 177 ==
LOC: ER 17:34 → EROBS 18:35 → 3W 18:35 → ENTRNSPT 05-15 14:56 → EDTRNSPTSTS 05-15 15:01 → 3W 05-15 15:15
PROVIDERS: Emergency Medicine; Internal Medicine Pulmonary Disease; Nurse Practitioner Family; ADMIT Hospitalist
PROC: 5A09357 Assistance with Respiratory Ventilation, Less than 24 Consecutive Hours, Continuous Positive Airway Pressure (ICD-10-PCS; principal; 2018-05-11)
PROC: 5A09357 Assistance with Respiratory Ventilation, Less than 24 Consecutive Hours, Continuous Positive Airway Pressure (ICD-10-PCS; 2018-05-12)
DX: J15.6 Pneumonia due to other Gram-negative bacteria (principal); J96.22 Acute and chronic respiratory failure with hypercapnia; J96.21 Acute and chronic respiratory failure with hypoxia; I50.43 Acute on chronic combined systolic (congestive) and diastolic (congestive) heart failure; I13.0 Hypertensive heart and chronic kidney disease with heart failure and stage 1 through stage 4 chronic kidney disease, or unspecified chronic kidney disease; J44.1 Chronic obstructive pulmonary disease with (acute) exacerbation; N17.9 Acute kidney failure, unspecified; I42.9 Cardiomyopathy, unspecified; E66.9 Obesity, unspecified; I27.20 Pulmonary hypertension, unspecified; E78.5 Hyperlipidemia, unspecified; M54.5 Low back pain; N40.0 Benign prostatic hyperplasia without lower urinary tract symptoms; N18.9 Chronic kidney disease, unspecified; E11.22 Type 2 diabetes mellitus with diabetic chronic kidney disease; E11.51 Type 2 diabetes mellitus with diabetic peripheral angiopathy without gangrene; I25.10 Atherosclerotic heart disease of native coronary artery without angina pectoris; F17.210 Nicotine dependence, cigarettes, uncomplicated; Z68.34 Body mass index [BMI] 34.0-34.9, adult; Z95.820 Peripheral vascular angioplasty status with implants and grafts; Z71.6 Tobacco abuse counseling; Z85.828 Personal history of other malignant neoplasm of skin; Z79.82 Long term (current) use of aspirin; Z79.84 Long term (current) use of oral hypoglycemic drugs; Z79.899 Other long term (current) drug therapy; Z82.49 Family history of ischemic heart disease and other diseases of the circulatory system; Z83.3 Family history of diabetes mellitus; Z81.8 Family history of other mental and behavioral disorders
CPT/HCPCS: 10879

== ENCOUNTER → 2018-05-29 | Outpatient (CLI) | payer OTHER ==
[~2018-05-29] MED LIST changes: +AUGMENTIN 875-1 EACH PO; +DIGOXIN250 MCG PO; +ESCITALOPRAM OX20 MG PO; +FLOMAX0.4 MG PO; +NOVOLOG100 UNIT/1 SUBQ; +PREDNISONE 10 M10 MG PO; +PROTONIX40 M1 PO; +SYNTHROID125 MC1 PO; +TORSEMIDE20 MG PO; +TRELEGY ELLIPT1 EACH IH; +TRESIBA FL200 UNIT/1; +TYLENOL325 MG PO; +ZETIA10 MG PO
--- NOTE | 2018-06-05 07:46 | SLE ---
[facility] [address] POLYSOMNOGRAPHY STUDY Name: MICHELLE TORRES Room #: REG [facility]#: [id number] Admission: 05/29/18 ������������������ Attend Phys: Efrain Holguin MD Discharge: ������������������ Date of : 49 Report #: [id number] THIS REPORT FOR: //name// CC: Efrain Rowan MD DATE OF SERVICE: 05/29/2018 SLEEP STUDY: ATTENDING PHYSICIAN: Dr. Sahil Rowan. The patient is a 72-year-old who weighs 250 pounds with a BMI of 34.9. The patient's Shacklefords score was 9. The patient underwent a split night study performed by [facility]. During the night study, the patient spent 447 minutes in bed and slept for 266 minutes with a sleep efficiency of 59.5%. Sleep latency was 6.1 minutes with a REM latency of 321.6 minutes. Overall, sleep architecture showed increased stage 1 sleep, which is 54% total sleep time. Reduced N2 sleep, absent N3 sleep and reduced REM sleep, which was 11.5% of the total sleep time. During the initial diagnostic portion of the study, the patient slept for 150 minutes. During that time, the patient had 33 obstructive apneas, 7 mixed apneas and 4 central apneas. The patient's apnea-hypopnea index was 71.4 per hour. The patient had 135 hypopneas. The patient's supine index was 78 per hour. REM sleep was not seen during the diagnostic portion. EKG monitoring revealed an average heart rate of 77 beats per minute. Normal sinus rhythm. Frequent PVCs observed. No sustained arrhythmias observed. No significant PLMS observed. Nocturnal oximetry study revealed an average oxygen saturation of 92% with lowest of 75%. 38 minutes were spent at an oxygen saturation of less than 89%. The patient met the criteria for CPAP initiation. He was started at 7 cm water and titrated up to 15 cm water. At the final pressure, the patient slept for 17.4 minutes. The patient had supine sleep, but no REM sleep. The patient's AHI was reduced to 3.4 per hour and oxygen saturation remained above 88%. IMPRESSION: 1. Severe sleep apnea-hypopnea syndrome at an AHI of 71 per hour. 2. Nocturnal hypoxia secondary to obstructive sleep apnea, but resolved with CPAP. 3. No clinically significant periodic limb movements of sleep. [address] [address] POLYSOMNOGRAPHY STUDY Name: MICHELLE TORRES [facility] [id number] Admission: 05/29/18 ������������������ Attend Phys: Efrain Holguin MD Discharge: ������������������ Date of : 49 Report #: [id number] 4. Reduced sleep efficiency resulting from sleep maintenance insomnia. RECOMMENDATIONS: 1. CPAP at 15 cm water should be used on a nightly basis. 2. Follow up in 4-6 weeks to assess compliance with CPAP and to document clinical improvement. 3. Review of download data is also recommended. 4. Weight loss is strongly advised. 5. Avoid HYDROGRAPHIC ENGINEER depressants. 6. Cautioned regarding driving until symptoms of sleep apnea resolve with the use of CPAP. ��������������������������������������������� <ELECTRONICALLY SIGNED> ���������������������������������������� By: Efrain Holguin MD ��������������������������������������������� 06/05/18 0746 [id number] 2145 Efrain Holguin MD /nt
== END ==
LOC: SLEEPLAB 04-04 11:23
DX: G47.33 Obstructive sleep apnea (adult) (pediatric) (principal)

== ENCOUNTER → 2018-05-30 | Outpatient (CLI) | payer OTHER | LOC: CAT 07:56 | DX: J44.9 Chronic obstructive pulmonary disease, unspecified (principal); K80.20 Calculus of gallbladder without cholecystitis without obstruction; J98.4 Other disorders of lung; I25.10 Atherosclerotic heart disease of native coronary artery without angina pectoris; I70.0 Atherosclerosis of aorta ==

== ENCOUNTER 2018-11-16 07:35 | Inpatient (IN) | payer OTHER ==
[~2018-11-16] VITALS: Ht 180.3 cm; Wt 113.4 kg
--- NOTE | ~2018-11-16 | H ---
[facility] [place] [address] HISTORY AND PHYSICAL Name: MICHELLE TORRES Room #: REG [facility]#: [id number] Admission: 11/16/18 ������������������ Attend Phys: Fritz Juarez MD Discharge: ������������������ Date of : 49 Report #: [id number] THIS REPORT FOR: //name// CC: Singh Juarez DATE OF SERVICE: 11/16/2018 REASON FOR ADMISSION: COPD exacerbation and CHF exacerbation. HISTORY OF PRESENT ILLNESS: The patient is a 73-year-old male with a history of nonischemic cardiomyopathy, EF of 20-25%, who came in today for ICD implantation. The patient did not have portable oxygen and therefore did not come in on his oxygen. His oxygen saturations were 66% on arrival and he was in respiratory distress. He was placed on nonrebreather. His sats improved to the mid 80s and he is getting breathing treatments. He has been seen by Anesthesia and myself. He denies any chest pain or chest tightness. He reports worsening shortness of breath over the past several days. He denies any fevers or chills. He denies any nausea, vomiting or diarrhea. He has noted some increased lower extremity swelling. He does report he stopped smoking about a week ago. REVIEW OF SYSTEMS: A 12-point review of systems was performed and was negative other than I mentioned above. PAST MEDICAL HISTORY: 1. Nonischemic cardiomyopathy, EF of 20-25%. 2. Cardiac catheterization in January 2018, no significant CAD. 3. Peripheral vascular disease, status post prior stent. 4. COPD, on oxygen. 5. Hypertension. 6. Obstructive sleep apnea. 7. Renal artery stenosis. 8. Carotid artery disease. 9. Diabetes mellitus type 2. SOCIAL HISTORY: He quit smoking one week ago. FAMILY HISTORY: Noncontributory. ALLERGIES: No known drug allergies. HOME MEDICATIONS: Include albuterol, aspirin, Lipitor, Plavix 75, digoxin, Lexapro, Zetia, fluticasone, insulin, DuoNebs, Synthroid, Bystolic, quinapril, sertraline, tamsulosin, torsemide. PHYSICAL EXAMINATION: [facility] [address] [place] [address] HISTORY AND PHYSICAL Name: MICHELLE TORRES Room #: [facility]#: [id number] Admission: 11/16/18 ������������������ Attend Phys: Fritz Juarez MD Discharge: ������������������ Date of : 49 Report #: [id number] VITAL SIGNS: Temperature is 36.7, pulse 81, respirations 30, blood pressure 139/57, sats 86%. GENERAL: The patient is alert, but in no acute respiratory distress. HEENT: Oropharynx is clear. NECK: Supple, no thyromegaly. HEART: Regular rate and rhythm. No murmurs, rubs or gallops. He does have elevated JVD. LUNGS: Demonstrate diminished breath sounds bilaterally. ABDOMEN: Soft, nontender. EXTREMITIES: He has 1-2+ lower extremity edema. NEUROLOGIC: Cranial nerves 2-12 are intact. LABORATORY DATA: Have been reviewed includes a mild leukocytosis of 12, hemoglobin 16, platelets 144. Sodium 139, potassium 4.9, creatinine 1.3. Chest x-ray shows no acute pulmonary edema, shows COPD like changes. A 12-lead EKG shows sinus rhythm with no ischemic changes. ASSESSMENT: A 73-year-old with: 1. Acute on chronic left ventricular systolic heart failure. 2. Acute chronic obstructive pulmonary disease exacerbation. 3. Acute respiratory failure with hypoxemia. PLAN: The patient will be admitted to the CCU. He will be diuresed and optimized from a pulmonary standpoint. Pulmonary consult will be obtained. We will proceed with possible ICD implantation once stabilized. He will be placed on Dr. Summers service. ��������������������������������������������� ���������������������������������������� By: ��������������������������������������������� 0850 0911 Fritz Juarez MD /nt
[2018-11-16 08:07] VITALS: BP 139/57
--- NOTE | 2018-11-16 08:14 | NUR ---
PT PRESENTED TO CV HOLDING WITHOUT HOME O2 ON. PT STATES HE DOES NOT HAVE A PORTABLE O2 TANK. PT APPEARS MARSHALL, SPO2 66% ON RA. PLACED ON NRB AND SPO2 UP TO 87% ON 15L, MD JUÁREZ AWARE. RT TO BEDSIDE FOR BREATHING TREATMENT, CXR ORDRERD. SKIN PWD AFTER 15 MIN ON 15L. PT VERBALIZES UNDERSTANDING OF NEED FOR CONTINOUS O2.
[2018-11-16 08:16] LABS: ABSOLUTE NEUTROPHILS 8.9 thou/uL (1.4-8.2); BASOPHILS 1.4 % (0.0-2.0); EOSINOPHILS 1.5 % (0.0-3.0); HEMATOCRIT 50.9 % (42.0-52.0); HEMOGLOBIN 16.5 gm/dL (14.0-18.0); LYMPHOCYTES 16.6 % (24.0-44.0); MCH 29.1 pg (26.0-34.0); MCHC 32.5 g/dL (28.0-37.0); MCV 89.7 fL (80.0-100.0); MONOCYTES 8.5 % (1.0-8.0); PLATELET COUNT 144 thou/uL (150-400); RBC 5.68 mil/uL (4.50-6.00); RDW 17.4 % (10.5-14.5); WBC 12.4 thou/uL (4.0-11.0)
[2018-11-16 08:23] LABS: CALCIUM 9.4 mg/dL (8.5-10.1); CREATININE 1.3 mg/dL (0.7-1.3); POTASSIUM 4.9 mmol/L (3.5-5.1)
[2018-11-16 08:28] LABS: PROTIME 10.4 Seconds (9.3-11.4)
[2018-11-16 08:29] LABS: ALBUMIN 3.4 g/dL (3.4-5.0); TOTAL PROTEIN 7.5 g/dL (6.4-8.2)
[2018-11-16] MEDS ORDERED: ACCUNEB SO1.25 MG/1 INH ×2 (08:29)
[2018-11-16 08:30] LABS: TOTAL BILIRUBIN 0.6 mg/dL (<0.1-1.0)
[2018-11-16] MEDS ORDERED: ADCIRCA20 MG PO (08:34)
[2018-11-16] MEDS ORDERED: VASCEPA1 GM PO (08:34)
[2018-11-16 08:51] LABS: BE(vivo) 1.7 mmol/L (-2 to +3); HCO3 27.7 mmol/L (22.0-26.0); PCO2 47.8 mmHg (35.0-45.0); pH 7.381 (7.360-7.450); sO2 88.1 % (92.0-98.0)
[2018-11-16 08:52] LABS: PO2 55.5 mmHg (80.0-100.0)
[2018-11-16 11:17] VITALS: BP 128/57
--- NOTE | 2018-11-16 11:54 | NUR ---
TO UNIT FROM DIRECTOR OF RETAIL BY CART. ICD PLACEMENT POSTPONED D/T POOR RESPIRATORY STATUS. O2 SAT 86% ON 6L PER NC. ABG'S NOTED. NSR PER TELE. WILL CONTINUE TO MONITOR CLOSELY.
--- NOTE | 2018-11-16 16:41 | EKG ---
[address] [address] ELECTROCARDIOGRAM REPORT Name: MICHELLE TORRES Room #: 200-I [facility] M.R.#: [id number] ������������������ Admission: 11/16/18 ������������������ Attend Phys: Isaac Summers MD, Discharge: ������������������ Date of : 49 Report #: [id number] ����������������������������������������������������������������� [id number] THIS REPORT FOR: //name// [facility] Test Date: 2018-11-16 Test Time: 08:27:19 Pat Name: MICHELLE TORRES Department: Room: 200 Gender: M Information Security Engineer: Pierre MAZA : 1945 Requested By: Fritz Juarez Order Number: [id number] MD: Fritz Juarez Measurements Intervals [place] Rate: 80 P: -26 HI: 168 QRS: -36 QRSD: 111 T: 104 QT: 390 QTc: 450 Interpretive Statements Sinus rhythm Probable left atrial enlargement Inferior infarct, old Compared to ECG 05/11/2018 17:56:05 Electronically Signed On 11-16-2018 16:41:03 CDT by Fritz Juarez [email or web address] ��������������������������������������������� <ELECTRONICALLY SIGNED> ���������������������������������������� By: Fritz Juarez MD ��������������������������������������������� 11/16/18 1641 6 6 Fritz Juarez MD /RE
[2018-11-16 17:24] VITALS: BP 143/86
[2018-11-16 19:10] VITALS: BP 155/77
[2018-11-17 03:40] VITALS: BP 144/65
--- NOTE | 2018-11-17 07:15 | NUR ---
ASSUME CARE 1900. PT/VITALS STABLE. DENIES ANY PAIN. TOLERATES ACTIVITY WELL. ADEQUATE REST NOTED. ASSESSMENT CHARTED. NO DISTRESS NOTED WITH BREATHING. PROGRESSING MODERATELY TOWARDS PLAN OF CARE. PLAN IS TO IMPROVE RESPIRATORY FUNCTION AND THEN PROCEED WITH ICD PLACEMENT. pULMONARY CONSULTED. WILL SEE PT TODAY. WILL CONTINUE TO MONITOR AND FOLLOW WITH POC
[2018-11-17 07:25] VITALS: BP 141/73
[2018-11-17] MEDS ORDERED: PREDNISONE 20 M20 MG PO (09:55)
[2018-11-17] MEDS ORDERED: DOXYCYCLINE HYC50 MG PO (09:55)
[2018-11-17 12:00] VITALS: BP 126/63
--- NOTE | 2018-11-17 13:24 | NUR ---
SPOKE WITH DR CORBIN FOR PATIENT OXYGEN REQUIREMENTS WHILE AMBULATING. HE IS IN NEED OF 10LNC WHICH DR CORBIN STATED IS TOO MUCH OF A DEMAND FOR HIM TO GO HOME ON WITH HIS CURRENT CONCENTRATOR AND NONCOMPLIANCE WITH MEDS AND OXYGEN. I LET CORINNA THE RN KNOW THAT DR CORBIN WOULD LIKE CARDIOLOGY NOTIFIED AND DISCHARGE PUSHED BACK. SHE ACKNOWLEDGED AND AGREED TO CALL DR BROWN WHO IS THE DISCHARGING PHYSICIAN.
--- NOTE | 2018-11-17 14:45 | NUR ---
Consult rec'd from nursing regarding issues with the pt's home o2 setup. Environmental Compliance Specialist visited with the pt at beside. He is a&ox4 and indicates that he has an o2 concentrator thru [facility] that goes to 6liters at home. He has returned the portable system over a year ago as he could not afford his 20% copay for the concentrator and the portable system as well as his cpap. He utilizes 3-5 liters at home. He has a ramp into his home and a rwalker he uses as needed. He lives with his . He has had issues affording his insulin, inhalers and dme. They do not qualify for [place] medicaid but do not have enough monthly income to cover all their health care expenses. They have the [employer] plan to help with meds. Good Rx info provided and he is talking with his pulmonary doctor about med options. He requested the [facility] liason visit with his to arrange to have a portable brought back out. Melany was updated and provided a bedside visit. She reports that they can arrange the portable after getting new exer sats. Per RT pt was sating in the 80's on 5 liters and needed 10 liters with activity. The attending was notified and discharge to home canceled per nursing. Pt anxious to go home. Cardiology and pulmonary discussing his plan of care. Priti Love on standby for pulm recommendations and exercise sats. He would need a completely difference setup at his current need.
[2018-11-17 16:23] VITALS: BP 126/63
[2018-11-17 16:38] VITALS: BP 120/52
[2018-11-17 20:15] VITALS: BP 108/52
[2018-11-18 04:45] VITALS: BP 117/57
--- NOTE | 2018-11-18 05:42 | NUR ---
PT A&O X4 ABLE TO MAKE BASIC NEEDS KNOWN. DENIES PAIN. PT ON 6L O2 PER NC. ACHS. PT BS UNCONTROLLED INSULIN ORDER CHANGED TO MODERATE DOSE SS AT HS. SBA ASSIST WITH TRANSFER.
[2018-11-18 07:10] VITALS: BP 111/47
[2018-11-18 10:28] VITALS: BP 126/63
[2018-11-18 10:33] VITALS: BP 126/63
--- NOTE | 2018-11-18 12:39 | NUR ---
ASSESSMENT CHARTED - MEDS PER LEIDY GOODE DIET AND FLUIDS. NO CO'S OF PAIN OR NAUSEA. PT DISCHARGED TO HOME - INSTRUCTION RE HOME MEDS/ CARE AND FOLLOW GIVEN TO PATIENT - STATED UNDERSTANDING OF INSTRUCTION GIVEN. IV AND MONIOTR REMOVED PRIOR TO DC. PT LEFT UNIT VIA WHEELCHAIR - HOME VIA PVT VEHICLE ACCOMPANIED BY - INFORMATION FAXED RO OXYGEN [employer] AND [employer] COPY - HOME WITH 2 PORTABLE TANKS - SEEN BY RESP THERAPY AND EXERCISE OXIMETRY DONE AND YUPDATED IN COMPUTER - DECREASED O2 NEEDS TODAY - THIS INFORMATION SENT TO DME. NO CO'S A TIME OF D/C.
== END 2018-11-18 12:25 | disposition home or self-care (01) | DRG 291 ==
LOC: CATH 07:35 → 2N 11:05
PROVIDERS: Internal Medicine Cardiovascular Disease; ADMIT Internal Medicine Cardiovascular Disease
DX: I13.0 Hypertensive heart and chronic kidney disease with heart failure and stage 1 through stage 4 chronic kidney disease, or unspecified chronic kidney disease (principal); I50.23 Acute on chronic systolic (congestive) heart failure; J96.21 Acute and chronic respiratory failure with hypoxia; J44.1 Chronic obstructive pulmonary disease with (acute) exacerbation; I42.8 Other cardiomyopathies; G47.33 Obstructive sleep apnea (adult) (pediatric); F32.9 Major depressive disorder, single episode, unspecified; E11.22 Type 2 diabetes mellitus with diabetic chronic kidney disease; N18.9 Chronic kidney disease, unspecified; I25.10 Atherosclerotic heart disease of native coronary artery without angina pectoris; E11.51 Type 2 diabetes mellitus with diabetic peripheral angiopathy without gangrene; F17.200 Nicotine dependence, unspecified, uncomplicated; Z95.810 Presence of automatic (implantable) cardiac defibrillator; Z95.820 Peripheral vascular angioplasty status with implants and grafts; Z99.81 Dependence on supplemental oxygen; Z79.899 Other long term (current) drug therapy; Z79.84 Long term (current) use of oral hypoglycemic drugs
CPT/HCPCS: 10081

== ENCOUNTER 2018-12-06 09:23 | Observation (INO) | payer OTHER ==
[2018-12-06] VITALS (8 sets, daily range): BP systolic 123–162; BP diastolic 65–103
[~2018-12-06] VITALS: Ht 180.3 cm; Wt 123.8 kg
[~2018-12-06 09:23] MED LIST changes: +ACCUNEB SO1.25 MG/1 INH; +ADCIRCA20 MG PO; +DOXYCYCLINE HYC50 MG PO; +PREDNISONE 20 M20 MG PO
[2018-12-06 10:15] LABS: ABSOLUTE NEUTROPHILS 5.5 thou/uL (1.4-8.2); BASOPHILS 1.2 % (0.0-2.0); EOSINOPHILS 1.4 % (0.0-3.0); HEMOGLOBIN 14.9 gm/dL (14.0-18.0); LYMPHOCYTES 16.1 % (24.0-44.0); MCH 29.5 pg (26.0-34.0); MCHC 33.2 g/dL (28.0-37.0); MCV 88.9 fL (80.0-100.0); MONOCYTES 11.2 % (1.0-8.0); PLATELET COUNT 113 thou/uL (150-400); POLYS 70.1 % (36.0-66.0); RBC 5.06 mil/uL (4.50-6.00); RDW 16.6 % (10.5-14.5); WBC 7.8 thou/uL (4.0-11.0)
[2018-12-06 10:23] LABS: CALCIUM 8.8 mg/dL (8.5-10.1); CREATININE 1.4 mg/dL (0.7-1.3); POTASSIUM 4.5 mmol/L (3.5-5.1)
[2018-12-06] MEDS ORDERED: SERTRALINE HCL50 MG PO (10:35)
--- NOTE | 2018-12-06 13:24 | NUR ---
REC PT ABOUT 1300 P PM PLACEMENT, SITE BLEEDING, GAUZE HAS 1"X1" SITE. CLINICAL MICROBIOLOGIST STATED THAT DOESN'T USUALLY HAPPEN. REPLACED FRESH GAUZE AND TEN MIN LATER PT BLEEDING THROUGH. DID A GENTLE PRESSURE DRESSING AND WILL CONTINUE TO MONITOR.NO COMPLAINTS OF PAIN AT THIS TIME. NORMALLY AMB W/WALKER IF ANY LENGTH NEEDED. NOT AROUND THE HOUSE. LAST BM WAS YESTERDAY. NO SKIN ISSUES OTHER THAN BRUISING AND OLD IV STICKS. DRY SKIN, SPOUSE ACCOMPANIES. CARDIAC MONITORED. VS BEING TAKEN FREQ. PT C/O HUNGER, HAS BRACE ON LEFT ARM. IS NOT IMPULSIVE THUS FAR. WILL CHECK DIET ORDER PT'S ONLY COMPLAINT IS HUNGER
[2018-12-07 02:44] VITALS: BP 109/53
--- NOTE | 2018-12-07 06:23 | NUR ---
A/O, calm and cooperative; denied pain, no n/v; dressing on the surgical site dry and intact; Patient could not urinate properly in the urina, urinated in the bed, accurate urine output not attained; dyspnea on walking to the bathroom. Heart beat irregular.
[2018-12-07 08:18] VITALS: BP 142/64
[2018-12-07] MEDS ORDERED: MINOCYCLINE HC100 M2 PO (11:02)
[2018-12-07 11:36] VITALS: BP 142/64
--- NOTE | 2018-12-07 12:22 | NUR ---
RECEIVED PT'S CARE AT 0700; PT. ON BED; AOX4; DURING ASSESSMENT NO C/O PAIN; AM MEDICATION GIVEN; ST. HE WANTS GO HOME; EDUATED ABOUT THE DREdie NEEDS TO PUT ORDERS; ST. UNDERSTANDING; AT NOON PT. UNCOOPERATIVE; ST. "MY IS HERE" O2 OFF; EDUCATED ABOUT O2; ST. "I KNOW"; "I KNOW"; "DO NOT KNOW ARGUE WITH ME"; I JUST WANT TO GO"; DISCHARGE DONE; PAPER SIGNED; D/C AT HOME;
--- NOTE | 2018-12-14 11:40 | P ---
[facility] [place] [address] PROCEDURE REPORT Name: MICHELLE TORRES Room #: 214-P [facility] Vanna Kendrick#: [id number] Admission: 12/06/18 Attend Phys: Fritz Juarez MD Discharge: 12/07/18 Date of : 49 Report #: [id number] THIS REPORT FOR: //name// CC: Singh Juarez DATE OF SERVICE: 12/06/2018 ICD IMPLANTATION PREOPERATIVE DIAGNOSIS: Nonischemic cardiomyopathy. POSTOPERATIVE DIAGNOSIS: Nonischemic cardiomyopathy. HISTORY: The patient is a 73-year-old male with a history of nonischemic cardiomyopathy as well as COPD, here for ICD implantation for primary prevention of sudden cardiac . ANESTHESIA: The patient underwent MAC anesthesia with no anesthesia related complications. DESCRIPTION OF PROCEDURE: The patient underwent informed consent. We discussed the details of the procedure including the risks, which include but not limited to bleeding, infection, vascular damage, cardiac perforation, pneumothorax. He understood these risks and is willing to proceed. As such, the patient underwent a venogram showing patency of the left axillary vein, received IV antibiotics for antibiotic prophylaxis. He was then prepped and draped in a sterile fashion. I injected lidocaine at the incision site. Incision was made. A pocket was created over the prepectoral fascia. Next, I attempted to obtain access to left axillary vein and had some difficulties. I hit the artery once and therefore, we performed a second venogram, which showed the vein was slightly lower and then I was able to easily obtain access x 2 placing sheaths using the modified Seldinger technique. Next, under fluoroscopy, I placed leads in the right ventricular apex and right atrial appendage both with adequate pacing and sensing thresholds. Leads were sutured to the prepectoral fascia, connected to the device and tug tests were performed and the device was tested and found to be functioning normally. The device was placed in the pocket. Pocket was irrigated with vancomycin. The pocket was closed in 2 layers and surgical glue was placed to the outer skin layer. The patient awoke neurologically and hemodynamically intact. No complications and no significant bleeding. The implanted device was Medtronic model #GDIZ1Y2, serial #[id number]. Atrial lead was a Medtronic model #5076, 52 cm, serial #[id number] and the RV lead was a Medtronic model #6935, 62 cm, serial #[id number]. Atrial lead demonstrated a P-wave of 4.2 millivolts, pacing impedance of 708 ohms and the pacing threshold [facility] [address] [place] [address] PROCEDURE REPORT Name: MICHELLE TRORES Room #: 214-P [facility] Vanna M.R.#: [id number] Admission: 12/06/18 Attend Phys: Fritz Juarez MD Discharge: 12/07/18 Date of : 49 Report #: [id number] was 0.4 volts at 0.5 milliseconds. The RV lead demonstrated R-wave of 5.5 millivolts, pacing impedance of 707 ohms and the pacing threshold was 0.3 volts at 0.5 milliseconds. The device was programmed to the AAIR/DDDR 60-130 mode. The VT zone was set at 180-220 beats per minute with 3 rounds of burst followed by 3 rounds of ramp followed by max output shocks. The VF zone was set greater than 220 beats per minute with ATP while charging followed by max output shocks. CONCLUSIONS: 1. Successful ICD implantation. 2. Satisfactory atrial and ventricular pacing and sensing thresholds. <ELECTRONICALLY SIGNED> By: Fritz Juarez MD 12/14/18 1140 1216 0136 Fritz Juarez MD /nt
== END 2018-12-07 12:26 | disposition home or self-care (01) ==
LOC: CATH 09:23 → 2N 11:34 → EROBS 11:34 → 2N 13:11 → ENTRNSPT 12-07 12:13 → EDTRNSPTSTS 12-07 12:18 → 2N 12-07 12:26
PROVIDERS: ADMIT Internal Medicine Cardiovascular Disease
DX: I42.8 Other cardiomyopathies (principal); J44.9 Chronic obstructive pulmonary disease, unspecified; I11.0 Hypertensive heart disease with heart failure; I50.9 Heart failure, unspecified; E11.51 Type 2 diabetes mellitus with diabetic peripheral angiopathy without gangrene; Z23 Encounter for immunization; Z85.828 Personal history of other malignant neoplasm of skin; Z79.82 Long term (current) use of aspirin; Z79.02 Long term (current) use of antithrombotics/antiplatelets; Z79.4 Long term (current) use of insulin; Z79.899 Other long term (current) drug therapy

== ENCOUNTER 2019-01-26 02:53 | Inpatient (IN) | payer OTHER ==
[~2019-01-26] VITALS: Ht 185.4 cm; Wt 119.7 kg
[2019-01-26] VITALS (7 sets, daily range): BP systolic 99–152; BP diastolic 45–80
[~2019-01-26 02:53] MED LIST changes: +MINOCYCLINE HC100 M2 PO; +SERTRALINE HCL50 MG PO
[2019-01-26 03:49] LABS: BE(vivo) 2.9 mmol/L (-2 to +3); HCO3 30.7 mmol/L (22.0-26.0); PCO2 61.3 mmHg (35.0-45.0); PO2 61.1 mmHg (80.0-100.0); sO2 88.8 % (92.0-98.0)
[2019-01-26 03:50] LABS: pH 7.317 (7.360-7.450)
[2019-01-26 04:07] LABS: ANION GAP 5 mmol/L (7-16); BUN 31 mg/dL (7-18); CALCIUM 8.9 mg/dL (8.5-10.1); CHLORIDE 103 mmol/L (98-107); CO2 35 mmol/L (21-32); CREATININE 1.2 mg/dL (0.7-1.3); GLUCOSE 155 mg/dL (74-106); SODIUM 143 mmol/L (136-145)
[2019-01-26 04:15] LABS: TROPONIN-I <0.06 ng/mL (<0.06)
[2019-01-26 04:19] LABS: ABSOLUTE NEUTROPHILS 6.1 thou/uL (1.4-8.2); BASOPHILS 0.4 % (0.0-2.0); EOSINOPHILS 1.5 % (0.0-3.0); HEMATOCRIT 40.2 % (42.0-52.0); HEMOGLOBIN 12.8 gm/dL (14.0-18.0); LYMPHOCYTES 25.8 % (24.0-44.0); MCHC 31.9 g/dL (28.0-37.0); MCV 93.9 fL (80.0-100.0); MONOCYTES 7.5 % (1.0-8.0); PLATELET COUNT 144 thou/uL (150-400); POLYS 64.8 % (36.0-66.0); RBC 4.28 mil/uL (4.50-6.00); RDW 18.1 % (10.5-14.5); WBC 9.4 thou/uL (4.0-11.0)
[2019-01-26 04:25] LABS: POTASSIUM 5.3 mmol/L (3.5-5.1)
[2019-01-26] MEDS ORDERED: TORSEMIDE20 MG PO (06:31)
[2019-01-26] MEDS ORDERED: BYSTOLIC10 MG PO (06:35)
[2019-01-26] MEDS ORDERED: KLOR-CON M2020 MEQ PO (06:36)
[2019-01-26] MEDS ORDERED: VASCEPA1 GM PO (06:40)
[2019-01-26] MEDS ORDERED: LEXAPRO20 MG PO (06:44)
--- NOTE | 2019-01-26 07:42 | NUR ---
PATIENT IS ALERT AND ORIENT. PATIENT IS SBA. PATIENTS IS COMFORTABLY IN BED. PATIENT DENIES PAIN. PATIENT VITALS STALBE. M
--- NOTE | 2019-01-26 13:06 | EKG ---
[address] [address] ELECTROCARDIOGRAM REPORT Name: MICHELLE TORRES Room #: 363-P ADM IN M.R.#: [id number] Admission: 01/26/19 Attend Phys: Tiarra Morgan MD Discharge: Date of : 49 Report #: [id number] THIS REPORT FOR: //name// [facility] ED Test Date: 2019-01-26 Test Time: 03:21:43 Pat Name: MICHELLE TORRES Department: Room: [facility] Gender: M Email Marketing Processor: MELE : 1945 Requested By: Spike Thompson Order Number: [id number] MD: Dustin Gutiérrez Measurements Intervals [place] Rate: 88 P: [place]: QRS: -14 QRSD: 109 T: 90 QT: 386 QTc: 467 Interpretive Statements Sinus rhythm with atrial premature complex Poor R wave progression Borderline prolonged QT interval Compared to ECG 11/16/2018 08:27:19 atrial premature complexes are now present Electronically Signed On 01-26-2019 13:06:20 ELECTRONIC SCALE TESTER by Dustin Gutiérrez [email or web address] <ELECTRONICALLY SIGNED> By: Dustin Gutiérrez MD, [facility] 01/26/19 1306 032 0 Dustin Gutiérrez MD, [facility] /EPI
--- NOTE | 2019-01-26 19:09 | NUR ---
Assumed care approx. 0700 this AM. Patients blood sugars uncontrolled until patient placed on high sliding scale and insulin glargine per hospitalist. Patient has been SOB w/ exertion. Adequate urine output post IV lasix admin. Patient taken for CT today, and results discussed with patient and Dr. Chamberlain so patient is more aware of his plan of care. Breathing treatments started today. Patient's daughter Shabnam updated on the phone this afternoon. Patient slowly progressing toward plan of care goals.
[2019-01-27 03:00] VITALS: BP 142/64
[2019-01-27 03:43] LABS: CALCIUM 9.4 mg/dL (8.5-10.1); CREATININE 1.6 mg/dL (0.7-1.3); MAGNESIUM 2.1 mg/dL (1.8-2.4)
--- NOTE | 2019-01-27 05:27 | NUR ---
ASSUMED CARE AT 1900. PT REPORTS BREATHING IS MUCH IMPROVED COMPARED TO ADMISSION. SATTING AROUND 92% ON 8L O2. LUNGS ARE COARSE WITH CRACKLES IN BASES. HAS BEEN ALTERNATING BETWEEN A-PACING AND SR IN 80'S; AROUND 0, PT HAD A 15-BEAT BURST OF VTACH. PT WAS ASLEEP AND HAD TO BE WOKEN UP, STATED HE DIDN'T HAVE ANY CHEST PAIN OR LIGHTHEADEDNESS. VITAL SIGNS STABLE, BLOOD SUGAR STILL ELEVATED ABOVE 300. PT C/O FEELING "OFF, NOT NAUSEATED JUST DON'T FEEL GOOD." HR HAS BEEN REGULAR SINCE THEN. PT'S SWEATPANTS SATURATED WITH URINE FROM NOT USING THE URINAL QUICK ENOUGH; TRIED TO EXPLAIN PT NEEDED TO TAKE THEM OFF FOR HYGIENE BUT PT DID NOT AGREE; HAD A MALE NURSE TALK WITH PT AND HE AGREED TO LET HIM HELP GET CLEANED UP. NO OTHER CONCERNS, WILL CONTINUE TO MONITOR.
[2019-01-27 07:45] VITALS: BP 125/55
--- NOTE | 2019-01-27 09:57 | EKG ---
[address] [address] ELECTROCARDIOGRAM REPORT Name: MICHELLE TORRES Room #: 363-P ADM IN M.R.#: [id number] Admission: 01/26/19 Attend Phys: Tiarra Morgan MD Discharge: Date of : 49 Report #: [id number] THIS REPORT FOR: //name// [facility] Test Date: 2019-01-26 Test Time: 12:04:47 Pat Name: MICHELLE TORRES Department: Room: 363 P Gender: M Radiation Monitor: Ivana GUPTA : 1945 Requested By: Dustin Gutiérrez Order Number: [id number] MD: Dustin Gutiérrez Measurements Intervals [place] Rate: 77 P: 27 WI: 171 QRS: -32 QRSD: 115 T: 121 QT: 399 QTc: 452 Interpretive Statements Sinus rhythm Leftward axis Nonspecific intraventricular conduction delay Poor R wave progression Nonspecific T wave abnormality Compared to ECG 11/16/2018 08:27:19 T-wave abnormality is now present Electronically Signed On 01-27-2019 9:56:45 DESK SERGEANT by Dustin Gutiérrez [email or web address] <ELECTRONICALLY SIGNED> By: Dustin Gutiérrez MD, [facility] 01/27/19 0956 1204 1204 Dustin Gutiérrez MD, [facility] /EPI
[2019-01-27 11:17] VITALS: BP 130/57
[2019-01-27 15:44] VITALS: BP 115/52
--- NOTE | 2019-01-27 17:41 | NUR ---
ASSUMED CARE OF PT AT 0700. PT ALERT AND ORIENTED, IN NO DISTRESS. RUNS OF VTACH NOTED OVERNIGHT - CARDIOLOGY AWARE. STRESS INCONTINENT. SUGARS REMAIN HIGH - INCREASED TO VERY HIGH DOSE SLIDING SCALE. PACED/SINUS ARRYTHMIA W/ BIGEMINY AT TIMES. CALLS OUT APPROPRIATELY. SITTING IN CHAIR THROUGHOUT THE DAY. BREATHING ON 8-9L NC - CRACKLES BILAT. PT REPORTS THAT HE FEELS HE IS IMPROVING.
[2019-01-27 21:19] VITALS: BP 131/46
--- NOTE | 2019-01-27 21:47 | EKG ---
[address] [address] ELECTROCARDIOGRAM REPORT Name: MICHELLE TORRES Room #: 363-P ADM IN M.R.#: [id number] Admission: 01/26/19 Attend Phys: Tiarra Morgan MD Discharge: Date of : 49 Report #: [id number] THIS REPORT FOR: //name// [facility] Test Date: 2019-01-27 Test Time: 08:08:20 Pat Name: MICHELLE TORRES Department: Room: 363 P Gender: M Area Development Manager: Jacky ROJAS : 1945 Requested By: Dustin Gutiérrez Order Number: [id number] MD: Dustin Gutiérrez Measurements Intervals [place] Rate: 99 P: -87 MI: 135 QRS: -7 QRSD: 125 T: 142 QT: 401 QTc: 515 Interpretive Statements Sinus rhythm Frequent supraventricular complexes Nonspecific intraventricular conduction delay Nonspecific ST and T wave abnormality Compared to ECG 01/26/2019 03:21:43 atrial premature complexes are now present Electronically Signed On 01-27-2019 21:47:08 FOUNTAIN BRUSH ASSEMBLER by Dustin Gutiérrez [email or web address] <ELECTRONICALLY SIGNED> By: Dustin Gutiérrez MD, [facility] 01/27/19 2147 0808 0808 Dustin Gutiérrez MD, [facility] /EPI
[2019-01-28 05:20] VITALS: BP 114/41
[2019-01-28 06:45] LABS: CREATININE 1.5 mg/dL (0.7-1.3); POTASSIUM 5.1 mmol/L (3.5-5.1)
--- NOTE | 2019-01-28 07:39 | NUR ---
ASSUMED CARE AT 1900. PT REPORTED "FEELING MUCH BETTER" COMPARED TO PREVIOUS MORNING. DENIED SOB, STILL ON 8L O2 AND SATTING 92-94%. DENIED PAIN OR NAUSEA. HS BLOOD SUGAR 375, GAVE 29 UNITS LISPRO PER HIGH SLIDING SCALE AND 76 UNITS LANTUS PER ORDER. NO EPISODES OF VTACH OVERNIGHT; PT WAS IN A TRIGEMINY/SINUS ARRYTHMIA MOST OF THE NIGHT, HR IN THE 70'S. HAD A MEDIUM BM IN THE EVENING; THIS AM, PT REPORTS HE STILL FEELS CONSTIPATED, AND THAT HE HAS GOOD RESULTS FROM USING LINZESS ABOUT ONCE A WEEK WHILE AT HOME. THIS AM, ABOUT 0500, PT COMPLAINED OF "FEELING WEIRD, LIKE I'M CONFUSED" BUT INITIALLY UNABLE TO CLARIFY FURTHER; CALLED BACK AFTER ABOUT 30 MINUTES AND SAID HE HAD A SHARP PAIN IN THE TOP/BACK OF HIS HEAD, WELL ABOUT FIVE MINUTES OF MODERATE CHEST PAIN THAT EASED UP WITHOUT INTERVENTION. PT REPORTS WHEN HE FEELS LIKE THIS AT HOME, HE TAKES AN ASPIRIN; GAVE DOSE OF TYLENOL THIS AM, PT REPORTED FEELING MUCH BETTER AFTER ABOUT AN HOUR. NO OTHER CONCERNS, SHIFT REPORT GIVEN AT 0700.
[2019-01-28 08:04] VITALS: BP 132/69
[2019-01-28 11:19] VITALS: BP 115/52
[2019-01-28 15:18] VITALS: BP 128/52
--- NOTE | 2019-01-28 18:27 | NUR ---
ASSUMED PATIENT CARE AT 0700. A/O X4. NOT COMPLIANT WITH FLIUD RESTRICTION. TIRATED 02 TO 6L/NC. O2 SAT 92-93%. SLOWLY TOWARDS POC GOALS.
[2019-01-28 20:08] VITALS: BP 123/49
[2019-01-29 04:00] VITALS: BP 127/54
[2019-01-29 04:25] LABS: CALCIUM 9.1 mg/dL (8.5-10.1); CREATININE 1.7 mg/dL (0.7-1.3); POTASSIUM 4.8 mmol/L (3.5-5.1)
--- NOTE | 2019-01-29 06:18 | NUR ---
Pt. up in the recliner chair till after MN then assisted back to bed. Slept some then requested to sit up in the recliner chair again. Maintaining O2 sat in the low to mid 90's on 6L/HF. He does get short of breath with exertion. Voiding per urinal. Bed alarm/chair alarm on. Making progress towards care plan goals.
[2019-01-29 08:03] VITALS: BP 130/46
[2019-01-29 11:40] VITALS: BP 116/51
--- NOTE | 2019-01-29 11:52 | NUR ---
INITIAL ASSESSMENT: DEJAH reviewed chart and spoke with nursing and attending physician. Pt was admitted from home due to acute pulmonary edema/hypoxia. Pt is currently on IV abx and IV steroids. DEJAH met with pt at bedside. Introduced role of SW. Pt is alert/orientated x 4. Pt reports he lives at home with his . Prior to admission, pt was using a walker for ambulation. Pt is normally on 6L of O2. Home O2 is provided by [facility]. Pt states that his portable tanks do not last very long and he feels that he is homebound. Pt has used [facility] in the past for home health. Pt's PCP is Dr. Armenta. Pt's goal is to return home when medically stable. SW contacted [facility] liaison, who states that pt's portable tanks last about 1.5 hours. Pt will need to call [facility] to have e-tanks replaced. DEJAH is following to assist as needed with discharge planning.
--- NOTE | 2019-01-29 15:57 | NUR ---
Assumed care approx. 0700 this AM. No acute changes or events. Pt stated he feels like he is making improvements but not back to baseline yet. Pt on 6LNC (baseline). Patient seen by endocrinology, changes made to insulin dose. Pt to keep working with therapy to gain strength. Incentive spirometry to be brought up by RT. Pt slowly progressing toward plan of care goals.
[2019-01-29 16:42] VITALS: BP 124/53
--- NOTE | 2019-01-29 17:12 | HC ---
[facility] [place] [address] CONSULTATION Name: MICHELLE TORRES Room #: 363-P ADM IN M.R.#: [id number] Admission: 01/26/19 Attend Phys: Seth Chamberlain MD Discharge: Date of : 49 Report #: [id number] THIS REPORT FOR: //name// CC: Singh Chamberlain DATE OF SERVICE: 01/29/2019 ENDOCRINE CONSULTATION NOTE CONSULTING PHYSICIAN: Dr. Chamberlain. REASON FOR CONSULTATION: Uncontrolled type 2 diabetes mellitus. PRIMARY CARE PHYSICIAN: Dr. Armenta. HISTORY OF PRESENT ILLNESS: This is a 73-year-old male patient with a medical background that is significant for multiple cardiac issues including nonischemic cardiomyopathy, congestive heart failure, status post recent ICD, DDD pacemaker placement on 12/06/2018, as well as peripheral vascular disease, status post multiple lower extremity stent placements. Also, the patient is known to have COPD and is followed chronically by Dr. Green. The patient is known to have type 2 diabetes mellitus for many years. The patient was admitted on 01/26/2019 with progressive shortness of breath for the few days preceding presentation and was admitted with the provisional diagnosis of otxyy-tb-rzupndd congestive heart failure as well as ezanm-im-koqulwj COPD exacerbation. The patient notes that he is maintained on a combination of Tresiba insulin 75 units daily in addition to NovoLog taken at variable doses of 10-15 units, 2-3 times a day based on his food intake and blood glucose values. The patient notes that blood glucose values have ranged anywhere from 150-250 mg/dL with occasional occurrences of arlj-cy-iiofrmeg hypoglycemia in the 50-80 mg/dL range. The patient has routine annual eye exams and is not aware of diabetic retinopathy. The patient has significant issues with peripheral neuropathy affecting his lower extremities for the most part, but also influencing his upper extremities to some extent. He is known to have chronic kidney disease as well as peripheral arterial disease with multiple stent placements in both lower extremities. Also, the patient notes that he was treated with hypothyroidism for some time, but that his trailer steerer who advised him that he did not need it and he has been off it completely for over a year. REVIEW OF SYSTEMS: [address] [address] CONSULTATION Name: MICHELLE TORRES Room #: 363-P [facility] IN M.R.#: [id number] Admission: 01/26/19 Attend Phys: Seth Chamberlain MD Discharge: Date of : 49 Report #: [id number] CONSTITUTIONAL: Fatigue, tiredness, but not weight changes. HEENT: Negative for sore throat, sinus pain, or ear drainage. PULMONARY: Shortness of breath and cough. No hemoptysis. CARDIAC: Dyspnea on exertion, lower extremity swelling, but not chest pain. GASTROINTESTINAL: Abdominal distention, abdominal discomfort, nausea, but no vomiting. NEUROLOGY: Lightheadedness, dizziness, but not seizure activity or loss of consciousness. SKIN: Negative for rash, ulceration, or discoloration. PSYCHOLOGY: Negative for hallucinations or delusions. Otherwise, review of systems noncontributory other than those mentioned in HPI. PAST MEDICAL HISTORY: 1. Type 2 diabetes mellitus. 2. Peripheral diabetic neuropathy. 3. Chronic kidney disease. 4. Chronic COPD, oxygen dependent. 5. Hypertension. 6. Hyperlipidemia. 7. Congestive heart failure. Baseline echo in 08/2018, ejection fraction 20-25%. 8. Nonischemic cardiomyopathy, status post Medtronic DDD/ICD placement in 11/2018. 9. Peripheral arterial disease, status post 10 stent placements in both lower extremities. 10. Active tobacco use. 11. History of hypothyroidism. 12. Obstructive sleep apnea. 13. Obesity. 14. Carotid arterial disease. 15. Renal artery stenosis. 16. Depression. OUTPATIENT MEDICATIONS: Include Flomax 0.4 mg daily, levothyroxine is reported at 150 mcg daily, Tresiba 75 units daily, Zetia 10 mg daily, digoxin 250 mcg daily, aspirin 325 mg daily, atorvastatin 80 mg daily, Plavix 75 mg daily, Adcirca 20 mg p.r.n., Zoloft 100 mg daily, Accupril 40 mg daily, Bystolic 10 mg daily. ALLERGIES: No known drug allergies. FAMILY HISTORY: Noncontributory. SOCIAL HISTORY: The patient lives with his , has 3 children. Denies use of illicit drugs. He has been a lifetime smoker and explained that he had tried multiple times to quit smoking. [address] [address] CONSULTATION Name: MICHELLE TORRES Room #: 363-P [facility] IN ..#: [id number] Admission: 01/26/19 Attend Phys: Seth Chamberlain MD Discharge: Date of : 49 Report #: [id number] PHYSICAL EXAMINATION: VITAL SIGNS: Blood pressure is 116/51 mmHg, heart rate is 113 beats per minute, respirations 24 per minute, temperature 36.9 degrees. CONSTITUTIONAL: The patient is sitting in his chair, having lunch, seems comfortable, not in apparent distress. HEENT: Anicteric sclerae. Intact extraocular motions. NECK: Supple, no carotid bruits, no thyromegaly, no lymphadenopathy. CHEST: Noted for limited air entry bilaterally with scattered rales and rhonchi, scattered wheezes. HEART: Regular rate and rhythm without murmurs or gallops. ABDOMEN: Distended, somewhat tense on examination, but lax. No guarding, no organomegaly. Active bowel sounds. EXTREMITIES: Lower extremity exam, +1 ankle edema bilaterally. Stasis dermatitis is noted. Pedal pulses are appreciated but are faint. Sensation to light touch is severely diminished bilaterally. NEUROLOGIC: Awake, alert, and oriented to time, place, and person. The remainder of his examination is nonfocal other than for the severe sensory deficit over both lower extremities. PSYCHIATRY: Normal mood and affect. Pleasant, interactive, answers all my questions appropriately. LABORATORY DATA: Blood glucose values have run predominantly in the range of 300-400 mg/dL with a slight improvement over the past 24 hours down to the mid 200 mg/dL range. Sodium 133, potassium 4.8, chloride 97, CO2 of 34, anion gap 2, BUN 71, creatinine 1.7, total bilirubin 0.6, calcium 9.1, magnesium 2.1, alkaline phosphatase is 133, ALT 20. EGFR 40. Troponin is negative. BNP 7169. White blood count 9.4, hemoglobin 12.8, hematocrit 40.2, and platelets 144. Hemoglobin A1c 8.0. ASSESSMENT AND PLAN: 1. Type 2 diabetes mellitus. The patient has an uncontrolled baseline as per his reported blood glucose values at home as well as by his recorded hemoglobin A1c. However, his level of control has acutely and severely worsened during this hospital stay in the setting of his acute intercurrent illness as well as the active usage of IV glucocorticoids. That said, I will adjust the patient's insulin regimen to where I will start presenting him with scheduled Humalog doses for meals starting at 18 units t.i.d. a.c. Also, I will change his Lantus insulin coverage to 35 units twice a day instead of the 90 at bedtime starting now. I will continue to provide support with Humalog supplemental scale at high dose. Blood glucose monitoring will continue a.c. and at bedtime, and his insulin regimen will be adjusted according to these blood glucose values. Undoubtedly, his insulin regimen will need to be revised again once steroids are tapered down and he approaches his baseline state again. [address] [address] CONSULTATION Name: MICHELLE TORRES Room #: 363-P [facility] IN ..#: [id number] Admission: 01/26/19 Attend Phys: Seth Chamberlain MD Discharge: Date of : 49 Report #: [id number] 2. Hypothyroidism. While the patient's chart shows a documentation of hypothyroidism, the patient insists that he had not been in any at all over the past year based on outpatient laboratory studies. That said, I will discontinue levothyroxine and go on and check active and current thyroid function studies to better assess his therapeutic needs. 3. Hyperlipidemia. The patient is currently on a combination of high-dose atorvastatin therapy as well as ezetimibe 10 mg daily. I will continue these. 4. Hypertension. The patient's level of blood pressure control is adequate, he is being followed actively by Cardiology who are managing this aspect of care. 5. Chronic obstructive pulmonary disease. The patient is going through an evpca-xi-namgyxx exacerbation of chronic obstructive pulmonary disease. He seems to be doing better with the current plan of care set forth by the Pulmonary team, who are actively following him. I have reviewed the patient's clinical care notes, laboratory data, outpatient clinical care notes, and other pertinent data for over 35 minutes. I certainly appreciate this consultation by Dr. Chamberlain. <ELECTRONICALLY SIGNED> By: Ankush Berry MD 01/29/19 1712 1249 1409 Ankush Berry MD /nt
[2019-01-29 20:30] VITALS: BP 131/84
[2019-01-30 04:45] VITALS: BP 108/59
[2019-01-30 06:18] LABS: CALCIUM 9.2 mg/dL (8.5-10.1); CREATININE 1.7 mg/dL (0.7-1.3)
[2019-01-30 06:27] LABS: POTASSIUM 5.2 mmol/L (3.5-5.1)
--- NOTE | 2019-01-30 06:42 | NUR ---
Pt. stated he slept fair during the night. Up in the recliner chair this am. Up with SBA to bathroom. Bed alarm on ,calls appropriately. Voiding per bathroom. Maintaining O2 sat greater than 90% on 6L/HF. He does get short of breath with exertion. Denies any concern at this time. Making progress towards care plan goals.
[2019-01-30 07:34] VITALS: BP 117/53
[2019-01-30] MEDS ORDERED: DEMADEX20 MG PO (10:50)
[2019-01-30] MEDS ORDERED: LISINOPRIL10 MG PO ×2 (11:03→14:32)
--- NOTE | 2019-01-30 13:31 | NUR ---
PT ALERT AND ORIENTED TIMES FOUR. VSS, 95%6L, SR ON TELE. PT DENIES PAIN/SOA. PT WORKED WELL WITH PT/OT ALSO UP SITTING IN THE CHAIR FOR MOST OF THE SHIFT. PT TOLERATES MEDS AND MEALS. PT PROGRESSING TOWRADS POC GOALS.
[2019-01-30] MEDS ORDERED: LANTUS100 UNIT/M SUBQ (14:32)
[2019-01-30] MEDS ORDERED: BAYER CHEWABLE81 MG PO (14:32)
[2019-01-30] MEDS ORDERED: IPRAT-ALBUT 0.5-3 ML INH (14:32)
[2019-01-30] MEDS ORDERED: NOVOLOG100 UNIT/1 SUBQ (14:32)
--- NOTE | 2019-01-30 15:14 | NUR ---
DISCHARGE NOTE: DEJAH reviewed chart and spoke with nursing and attending physician. Pt is medically stable for discharge home today. No discharge needs identified at this time, but is available to assist should needs arise.
[2019-01-30 15:15] VITALS: BP 117/53
[2019-01-30 15:27] VITALS: BP 132/67
== END 2019-01-30 19:05 | disposition home or self-care (01) | DRG 291 ==
LOC: ER 02:53 → 3W 04:39 → EROBS 04:39 → 3W 05:13
PROVIDERS: Emergency Medicine; Internal Medicine; Nurse Practitioner Adult Health; ADMIT Internal Medicine
DX: I13.0 Hypertensive heart and chronic kidney disease with heart failure and stage 1 through stage 4 chronic kidney disease, or unspecified chronic kidney disease (principal); I50.23 Acute on chronic systolic (congestive) heart failure; J96.21 Acute and chronic respiratory failure with hypoxia; J96.22 Acute and chronic respiratory failure with hypercapnia; J44.1 Chronic obstructive pulmonary disease with (acute) exacerbation; I47.2 Ventricular tachycardia; I42.8 Other cardiomyopathies; F17.210 Nicotine dependence, cigarettes, uncomplicated; I25.10 Atherosclerotic heart disease of native coronary artery without angina pectoris; F32.9 Major depressive disorder, single episode, unspecified; E78.00 Pure hypercholesterolemia, unspecified; E11.51 Type 2 diabetes mellitus with diabetic peripheral angiopathy without gangrene; E11.22 Type 2 diabetes mellitus with diabetic chronic kidney disease; E78.5 Hyperlipidemia, unspecified; E11.42 Type 2 diabetes mellitus with diabetic polyneuropathy; E66.01 Morbid (severe) obesity due to excess calories; E11.65 Type 2 diabetes mellitus with hyperglycemia; E03.9 Hypothyroidism, unspecified; G47.33 Obstructive sleep apnea (adult) (pediatric); N18.3 Chronic kidney disease, stage 3 (moderate); I70.1 Atherosclerosis of renal artery; Z68.34 Body mass index [BMI] 34.0-34.9, adult; Z87.01 Personal history of pneumonia (recurrent); Z95.810 Presence of automatic (implantable) cardiac defibrillator; Z98.890 Other specified postprocedural states; Z95.820 Peripheral vascular angioplasty status with implants and grafts; Z79.4 Long term (current) use of insulin; Z79.82 Long term (current) use of aspirin; Z79.899 Other long term (current) drug therapy; Z82.49 Family history of ischemic heart disease and other diseases of the circulatory system; Z83.3 Family history of diabetes mellitus; Z81.8 Family history of other mental and behavioral disorders; Z99.81 Dependence on supplemental oxygen; Z71.6 Tobacco abuse counseling
CPT/HCPCS: 10879

== ENCOUNTER 2019-04-27 01:27 | Inpatient (IN) | payer OTHER ==
[2019-04-27] VITALS (55 sets, daily range): BP systolic 94–142; BP diastolic 52–91
[~2019-04-27] VITALS: Ht 182.9 cm; Wt 113.4 kg
[~2019-04-27 01:27] MED LIST changes: +BAYER CHEWABLE81 MG PO; +KLOR-CON M2020 MEQ PO; +LANTUS100 UNIT/M SUBQ; +LEXAPRO20 MG PO; +LISINOPRIL10 MG PO
[2019-04-27 02:09] LABS: BE(vivo) -2.1 mmol/L (-2 to +3); HCO3 27.3 mmol/L (22.0-26.0); PO2 86.1 mmHg (80.0-100.0); sO2 94.2 % (92.0-98.0)
[2019-04-27 02:11] LABS: PCO2 69.3 mmHg (35.0-45.0); pH 7.214 (7.360-7.450)
[2019-04-27 02:25] LABS: ABSOLUTE NEUTROPHILS 5.2 thou/uL (1.4-8.2); EOSINOPHILS 3.1 % (0.0-3.0); HEMATOCRIT 44.6 % (42.0-52.0); HEMOGLOBIN 13.4 gm/dL (14.0-18.0); LYMPHOCYTES 18.2 % (24.0-44.0); MCH 27.9 pg (26.0-34.0); MCHC 30.1 g/dL (28.0-37.0); MCV 92.8 fL (80.0-100.0); MONOCYTES 9.2 % (1.0-8.0); PLATELET COUNT 110 thou/uL (150-400); POLYS 68.5 % (36.0-66.0); RBC 4.81 mil/uL (4.50-6.00); RDW 18.3 % (10.5-14.5); WBC 7.6 thou/uL (4.0-11.0)
[2019-04-27 02:30] LABS: ANION GAP 3 mmol/L (7-16); BUN 28 mg/dL (7-18); CALCIUM 8.3 mg/dL (8.5-10.1); CHLORIDE 102 mmol/L (98-107); CO2 36 mmol/L (21-32); CREATININE 1.4 mg/dL (0.7-1.3); GLUCOSE 166 mg/dL (74-106); POTASSIUM 5.6 mmol/L (3.5-5.1); SODIUM 141 mmol/L (136-145)
[2019-04-27 02:39] LABS: TROPONIN-I <0.06 ng/mL (<0.06)
[2019-04-27 03:21] LABS: BE(vivo) 2.5 mmol/L (-2 to +3); HCO3 32.7 mmol/L (22.0-26.0); PO2 127.9 mmHg (80.0-100.0); sO2 97.8 % (92.0-98.0)
[2019-04-27 03:23] LABS: PCO2 80.6 mmHg (35.0-45.0); pH 7.226 (7.360-7.450)
[2019-04-27 05:09] LABS: BE(vivo) 2.9 mmol/L (-2 to +3); HCO3 28.3 mmol/L (22.0-26.0); PCO2 46.2 mmHg (35.0-45.0); PO2 282.1 mmHg (80.0-100.0); pH 7.405 (7.360-7.450); sO2 99.7 % (92.0-98.0)
[2019-04-27 06:13] LABS: ANISOCYTOSIS 2+; POLYCHROMASIA 1+
--- NOTE | 2019-04-27 10:14 | 2DMMODE ---
[facility] [place] [address] 2 D/M-MODE ECHOCARDIOGRAM Name: MICHELLE TORRES Room #: 249-P ADM IN M.R.#: [id number] Admission: 04/27/19 Attend Phys: Roman Solo MD Discharge: Date of : 49 Report #: [id number] THIS REPORT FOR: cc: Singh Armenta James A. DO Park, Jin S. MD ~ APPROVED REPORT Study performed: 04/27/2019 09:10:29 EXAM: Comprehensive 2D, Doppler, and color-flow Echocardiogram Patient Location: ICU Room #: 249 Status: routine BSA: 2.37 HR: 81 bpm Rhythm: NSR Other Information Study Quality: Adequate Indications ICD: Congestive Heart Failure COPD Diabetes Dyspnea Cardiomyopathy Hypertension/HDD 2D Dimensions RVDd: 54.46 mm IVSd: 8.96 (7-11mm) LVOT Diam: 23.50 (18-24mm) LVDd: 64.75 mm PWd: 8.89 (7-11mm) Ascending Ao: 26.50 (22-36mm) LVDs: 60.22 (25-40mm) Aortic Root: 30.23 mm IVC: 29.00 mm Volumes Left Atrial Volume (Systole) Single Plane 4CH: 110.88 mL Single Plane 2CH: 107.81 mL LA ESV Index: 52.00 mL/m2 [facility] [address] [place] [address] 2 D/M-MODE ECHOCARDIOGRAM Name: MICHELLE TORRES Room #: 249-P ADM IN M.R.#: [id number] Admission: 04/27/19 Attend Phys: Roman Solo MD Discharge: Date of : 49 Report #: [id number] Aortic Valve AoV Peak Wilfredo.: 0.96 m/s AO Peak Gr.: 3.71 mmHg LVOT Max P.35 mmHg LVOT Max V: 0.58 m/s ANH Vmax: 2.61 cm2 Mitral Valve E/A Ratio: 0.8 MV Decel. Time: 230.97 ms MV E Max Wilfredo.: 0.72 m/s MV A Wilfredo.: 0.91 m/s MV PHT: 66.98 ms IVRT: 152.25 ms Pulmonary Valve PV Peak Wilfredo.: 0.71 m/s PV Peak Gr.: 2.04 mmHg Pulmonary Vein P Vein S: 0.26 m/s P Vein A: 0.15 m/s P Vein D: 0.18 m/s P Vein A Dur.: 69.2 msec P Vein S/D Ratio: 1.44 Tricuspid Valve TR Peak Wilfredo.: 2.68 m/s TR Peak Gr.: 28.76 mmHg PA Pressure: 44.00 mmHg Left Ventricle Left ventricle is dilated. There is severe global hypokinesis of the left ventricle. There is normal left ventricular wall thickness. Left ventricular ejection fraction is severely decreased. LVEF is 10-15%. Grade I - abnormal relaxation pattern. Right Ventricle Right ventricle is dilated. Right ventricle is hypokinetic. Device lead is present in the right ventricle. Atria Left atrium is dilated. Right atrium is dilated. Device lead is present in the right atrium. Aortic Valve The aortic valve is normal in structure. The Aortic valve is sclerotic. Trace aortic regurgitation. There is no aortic valvular stenosis. [facility] [place] [address] 2 D/M-MODE ECHOCARDIOGRAM Name: MICHELLE TORRES Room #: 249-P [facility] IN M.R.#: [id number] Admission: 04/27/19 Attend Phys: Roman Solo MD Discharge: Date of : 49 Report #: [id number] Mitral Valve The mitral valve is normal in structure. Mild mitral regurgitation. No evidence of mitral valve stenosis. Tricuspid Valve The tricuspid valve is normal in structure. There is mild tricuspid regurgitation. Estimated PAP 44 mmHg. There is moderate pulmonary hypertension. Pulmonic Valve The pulmonary valve is normal in structure. Trace pulmonic regurgitation. Great Vessels The aortic root is normal in size. The inferior vena cava is dilated with no inspiratory collapse. Pericardium Trace pericardial effusion. <Conclusion> Left ventricle is dilated. Left ventricular ejection fraction is severely decreased. Grade I - abnormal relaxation pattern. Right ventricle is dilated. Device lead is present in the right ventricle. Left atrium is dilated. Trace aortic regurgitation. Mild mitral regurgitation. There is mild tricuspid regurgitation. Estimated PAP 44 mmHg. There is moderate pulmonary hypertension. <ELECTRONICALLY SIGNED> By: Hua Oneil MD 04/27/19 1013 [id number] Hua Oneil MD /INF
--- NOTE | 2019-04-27 12:20 | NUR ---
VASCULAR ACCESS CONSULTED FOR PICC PLACEMENT, DISCUSSED BENEFITS AND RISKS WITH , VERBALIZED UNDERSTANDING. PT'S LABS,MEDS,HISTORY,ORDER AND CONSENT REVIEWED. LACEY BASILIC WAS WIDELY PATENT WITH USG, 5FR TL POWER PICC TRIMMED TO 48CM INSERTED TO 2CM EXTERNAL. STAT CXR CONFIRMED AT [facility]. PICC RELEASED FOR IMMEDIATE USE PER PROTOCOL TO SAL HORVATH. PT TOLERATED WELL.
--- NOTE | 2019-04-27 12:44 | NUR ---
Patient intubated and sedated. Admits with res distress. Patient prev resides at home with spouse. He has home oxygen via [employer] prev on 6 liters in home. He has ramp to home and HH in past with [facility]. Patient with [employer] medicare plan. Attempted to call to verify and introduce role of casemgt, unable to reach . Last admit to [facility] Jan 2019.
[2019-04-27 13:24] LABS: BE(vivo) 3.3 mmol/L (-2 to +3); HCO3 29.1 mmol/L (22.0-26.0); PCO2 48.6 mmHg (35.0-45.0); PO2 76.5 mmHg (80.0-100.0); pH 7.395 (7.360-7.450); sO2 95.1 % (92.0-98.0)
--- NOTE | 2019-04-27 14:14 | NUR ---
ASSUMED CARE OF PATIENT AT 13:24. ASSESSED PATIENT, TUBE FEED NOT STARTED, DID NOT HAVE XRAY CONFIRMATION. ADVANCED OG TUBE AFTER SPEAKING WITH RADIOLOGIST. NEW CXR ORDERED WITH PLACEMENT CONFIRMED. WILL CONFIRM WITH [facility] [employer] [facility] TUBE FEED FORMULA TO BE STARTED. CONTINUING TO MONITOR BLOOD GLUCOSE. BROTHER AT BEDSIDE, UNABLE TO GIVE INFORMATION. ENCOURAGED TO SPEAK WITH FAMILY REGARDING PATIENT STATUS/CONDITION. PATIENT REMAINS IN RESTRAINTS, EASILY AROUSABLE. BECOMES AGITATED EASILY WHEN ADJUSTING TUBES OR MOVING PATIENT. FALL PRECAUTIONS IN PLACE. CASEY PATENT WITH SECUREMENT DEVICE INTACT. REMAINS INTUBATED AND ON SEDATION MEDICATION. TITRATION NOT REQUIRED AT THIS TIME.
[2019-04-27 19:18] LABS: URINE BILIRUBIN NEGATIVE (Negative); URINE BLOOD NEGATIVE (Negative); URINE CLARITY CLEAR; URINE GLUCOSE-RANDOM* NEGATIVE (Negative); URINE KETONES NEGATIVE (Negative); URINE LEUKOCYTES-REFLEX NEGATIVE (Negative); URINE NITRITE-REFLEX NEGATIVE (Negative); URINE PROTEIN (DIPSTICK) NEGATIVE (Negative); URINE UROBILINOGEN 0.2 E.U./dl (0.2-1.0)
[2019-04-27 19:27] LABS: URINE COLOR YELLOW
[2019-04-28] VITALS (27 sets, daily range): BP systolic 102–132; BP diastolic 42–96
--- NOTE | 2019-04-28 04:25 | NUR ---
NO OVERNIGHT EVENTS. PT. EASILY AROUABLE WITH LIGHT TACTILE STIMULATION. SEEMS TO GET FRUSTRATED WHEN SUCTIONING OR TURNING. PT. SHAKES WHEN AGITATED AND BECOMES TACHYCARDIC IN THE 110'S. SEEMS TO BE REASSURED WHEN SPOKEN TO, BUT NEEDED MORE PROPOFOL THIS SHIFT TO STAY COMFORTABLE. WHEN THERE IS NO STIMULATION PATIENT SEEMS TO REST COMFORTABLEY. ASSESSMENTS AND VITAL SIGNS CHARTED. MEDICATION TITRATION CHARTED. PT. MAKING NO SIGNIFICANT PROGRESS TOWARDS GOALS. CONTINUE TO FOLLOW POC. WILL CONTINUE TO MONITOR.
[2019-04-28 05:01] LABS: HEMATOCRIT 40.2 % (42.0-52.0); HEMOGLOBIN 12.6 gm/dL (14.0-18.0); MCHC 31.2 g/dL (28.0-37.0); MCV 89.7 fL (80.0-100.0); RBC 4.49 mil/uL (4.50-6.00); RDW 18.4 % (10.5-14.5); WBC 8.2 thou/uL (4.0-11.0)
[2019-04-28 05:19] LABS: CALCIUM 8.4 mg/dL (8.5-10.1); CREATININE 1.7 mg/dL (0.7-1.3); POTASSIUM 5.4 mmol/L (3.5-5.1)
--- NOTE | 2019-04-28 17:33 | NUR ---
REMAINS ON THE VENT. LUNGS ARE CLEAR TO DIMINISHED. COPIOUS SECREATIONS SUCTION OR AND ET TUBE. CASEY TO DD WITH YELLOW URINE. REMAINS ON PROPOFOL DRIP FOR SEDATION. SCDS ON BILAERAT. ABDOMEN IS ROUND BOWEL SOUNDS HYPOACTIVE. DID NOT START TUBE FEEDINGS HIGH RESUAL NOTED. TURN Q 2 HOURS . FAMILY AT BEDSIDE TODAY AND SPOKE WITH DR. CORBIN IN REGARDS TO PLAN OF CARE
[2019-04-29] VITALS (21 sets, daily range): BP systolic 98–147; BP diastolic 42–89
[2019-04-29 06:03] LABS: HEMATOCRIT 42.6 % (42.0-52.0); HEMOGLOBIN 13.1 gm/dL (14.0-18.0); MCH 27.8 pg (26.0-34.0); MCHC 30.9 g/dL (28.0-37.0); MCV 90.1 fL (80.0-100.0); RBC 4.73 mil/uL (4.50-6.00); RDW 18.4 % (10.5-14.5); WBC 8.4 thou/uL (4.0-11.0)
[2019-04-29 06:13] LABS: ALBUMIN 2.1 g/dL (3.4-5.0); CALCIUM 8.6 mg/dL (8.5-10.1); MAGNESIUM 1.9 mg/dL (1.8-2.4); POTASSIUM 5.4 mmol/L (3.5-5.1)
--- NOTE | 2019-04-29 16:48 | NUR ---
PT CHANGED OVER TO COMFORT CARE/NO CODE AT 1507. EXTUBATED AT 1600. FAMILY AT BEDSIDE.
[2019-04-30] VITALS: BP 159/84
[2019-04-30 02:00] VITALS: BP 150/81
--- NOTE | 2019-04-30 02:34 | NUR ---
COMFORT CARE ORDERS INITIATED PER DR CORBIN AT 1900. PT LETHARGIC THROUGH OUT SHIFT. PER FAMILY PT HAS BEEN HAVING BRIEF PERIODS OF HALLUCINATIONS. QUESTION ANSWERED BY RN TO FAMILY. THEY VERBALIZE UNDERSTANDING. PT KEPT COMFORTABLE THORUGH OUT NIGHT. WILL CONTINUE TO MONITOR.
[2019-04-30 04:01] VITALS: BP 157/70
[2019-04-30 06:00] VITALS: BP 145/69
[2019-04-30 08:00] VITALS: BP 152/84
--- NOTE | 2019-04-30 08:46 | NUR ---
ASSUMED CARE OF PT AT 0645. FAMILY AT BEDSIDE. SPOKE ABOUT TX OUT OF ICU, FAMILY INTERESTED IN MOVING OUT OF ICU TO CONTINUE COMFORT CARE.
--- NOTE | 2019-04-30 08:58 | NUR ---
Followup: No code status, comfort care measures. Defer further nutrition reassessment.
--- NOTE | 2019-04-30 09:44 | NUR ---
per report, family looking possible at comfort care. pt is up in bed. o2 per nasal canula, prn morphine for comfort. at bedside and son in from out of town, pt requesting to eat. education on home with hospice vs [facility] " i think he would rather go to hospice house if he were qualified. we have small house and it would be hard to bring him home but will see what hospice says "/ william. will discuss during los and family will discuss as well.
--- NOTE | 2019-04-30 13:51 | NUR ---
FAXED REFERRAL TO HOSPICE HOUSE SPOKE WITH ROMULO IN ADM SHE RECEIVED REFERRAL AND WILL SET UP EVAL TIME WITH FAMILY. DP TO FOLLOW.
[2019-04-30 14:02] VITALS: BP 130/70
[2019-05-01] VITALS (7 sets, daily range): BP systolic 126–149; BP diastolic 71–86
--- NOTE | 2019-05-01 03:31 | NUR ---
ASSUMED PT CARE AT 1900. VSS EXCEPT 02 SATS WHICH RANGES BTW 80s-90s. 02 SAT WAS AT 2L UPON ASSUMPTION OF CARE BUT WAS TURNED UP TO HIS HOME BASELINE OF 6L; THIS WAS WHAT BROUGHT HIS SATS BACK UP TO THE LOW 90s. PT A&0X3. PT IN ROOM. FAMILY CONCERNED HE MIGHT NEED A NICOTINE PATCH SINCE PT IS A CURRENT SMOKER. PT IS VERY EDEMATOUS WITH DRY FLAKY SKIN. OVER 2L URINE OUTPUT THIS SHIFT. PT IS STABLE FOR NOW, NO COMPLAINTS OF PAIN OR DISCOMFORT. HOSPICE REEVALUATION TODAY.
--- NOTE | 2019-05-01 08:12 | NUR ---
Assumed care at 0700. PT is alert but appears diaphoretic. PT is requesting food at this time. Nurse checked PT's blood glucose and it was noted to be 35. Nurse rechecked PT's blood glucose and it was noted to be 38. Dr. Castano was in the PT's room when the second blood glucose resulted. He was notified of results and verablized understanding. Nurse gave the PT orange juice, yogurt, peanut butter crackers, and 4 glucose tablets per hypoglycemia orders. Fall precautions are in place. Call light within reach. Nurse will continue to monitor.
--- NOTE | 2019-05-01 08:59 | NUR ---
william at bedside, she stayed with him again over night. pt up in bed, feeding him breakfast. 02 up to 6L still stat between 70-90. [facility] to come back out today for reeval. discussed other home with hospice and 1st choice would be hospice house. " comfort is want the doctor said"/ william.
--- NOTE | 2019-05-01 09:47 | NUR ---
NOTIFIED WINTER WITH HOSPICE TO RE-EVAL PT FOR HOSPICE HOUSE SHE CAN BE HERE AFTER 1030 TODAY. DP TO FOLLOW.
--- NOTE | 2019-05-01 16:55 | NUR ---
SW reviewed chart and spoke with nursing and attending physician. Pt was transferred to 3W from ICU today. pipe cutter evaluated pt and met with pt and family. Family does meet admission criteria for the hospice house. Pt's is agreeable with plan. Pt's children are not in agreement with comfort care at this time. pipe cutter to re-eval and meet with family tomorrow afternoon at 1400. DEJAH is following to assist as needed with discharge planning.
--- NOTE | 2019-05-01 18:00 | NUR ---
PT AND SPOUSE AND CHILDREN SPOKE WITH [facility] REPS TODAY... EXPRESSED WISHES TO TRANSFER TO [facility] BUT BOTH CHILDREN ARE OPPOSED TO TRANSFER...PLANS FOR [facility] RE[facility] TO RETURN @ 1400 WED FOR FURTHER DISCUSSION.
--- NOTE | 2019-05-02 02:53 | NUR ---
PT AO TO PERSON AND PLACE WITH INTERMITTENT CONFUSION. PT DENIES PAIN AND SOB. PT AT BEDSIDE. PT EXPRESSES SHE NO LONGER WANTS TO CONTINUE MEDICATIONS THAT ARE NOT GOING TO HELP PT CONDITION. PT CONTINUES ON COMFORT CARE. PT TOLERATING PO INTAKE OF THIN LIQUID ON PUREED DIET. PT CONTINUES TO REST IN BED. ENCOURAGED FREQUENT REPOSITIONING. ENCOURAGED PT AND PT TO NOTIFY STAFF FOR ALL NEEDS. CALL LIGHT WITHIN REACH, BED IN LOWEST POSITION, BED ALARM ON. WILL CONTINUE TO MONITOR.
[2019-05-02 04:50] VITALS: BP 155/95
[2019-05-02 07:24] VITALS: BP 153/91
[2019-05-02 12:50] LABS: HEMATOCRIT 46.5 % (42.0-52.0); HEMOGLOBIN 14.6 gm/dL (14.0-18.0); MCH 27.8 pg (26.0-34.0); MCHC 31.5 g/dL (28.0-37.0); MCV 88.4 fL (80.0-100.0); RBC 5.26 mil/uL (4.50-6.00); RDW 17.5 % (10.5-14.5); WBC 10.6 thou/uL (4.0-11.0)
[2019-05-02 12:53] LABS: ANION GAP < 0 mmol/L (7-16); BUN 45 mg/dL (7-18); CALCIUM 8.6 mg/dL (8.5-10.1); CHLORIDE 99 mmol/L (98-107); CO2 42 mmol/L (21-32); CREATININE 1.3 mg/dL (0.7-1.3); GLUCOSE 225 mg/dL (74-106); POTASSIUM 4.7 mmol/L (3.5-5.1); SODIUM 140 mmol/L (136-145)
--- NOTE | 2019-05-02 15:42 | NUR ---
DEJAH reviewed chart and spoke with nursing and attending physician. DEJAH notified by purchase price analyst that meeting with pt's family has been rescheduled for tomorrow at 0900. DEJAH updated pt's nurse and attending physician. DEJAH is following to assist as needed with discharge planning.
[2019-05-02 15:55] VITALS: BP 139/84
--- NOTE | 2019-05-02 18:08 | NUR ---
ASSUMED CARE APPROX 0700. PT SPOUSE AT BEDSIDE. PT AND SPOUSE EDUCATED ON THE IMPORTANCE OF CONTINUING LASIX AND SOLU-MEDROL AT THIS TIME. PT IS ANTICIPATING DISCHARGE TOMORROW. PT VOICES NO CONCERNS AT THIS TIME. PT IS PROGRESSING TOWARDS DISCHARGE GOALS.
[2019-05-02 22:30] VITALS: BP 143/88
--- NOTE | 2019-05-03 03:04 | NUR ---
Patient making slow progress toawards outcome goals. Oxygenation optimal with 6L/NC. High fall risks, fall precautions in place. Hospice to meet with family today. and son at bedside. Lin catheter in place for accurate I and O.
[2019-05-03 04:03] VITALS: BP 148/91
[2019-05-03 07:19] VITALS: BP 135/84
[2019-05-03 08:01] VITALS: BP 136/93
[2019-05-03 15:10] VITALS: BP 142/109
--- NOTE | 2019-05-03 15:27 | NUR ---
DISCHARGE NOTE: SW reviewed chart and spoke with nursing and attending physician. working foreman met with pt and family this morning. Pt does meet criteria for admission to the [facility]. Pt's family are agreeable with discharge plan. Awaiting a bed at [facility]. SW met with pt and at bedside. SW explained process for arranging ambulance transportation to [facility] when a bed is available. Both verbalized understanding. Nursing will need to call report. Discharge orders faxed to [facility]. Ambulance form placed on pt's chart. Ambulance will need to be scheduled when a bed is available. SW is available to assist should needs arise. [facility]-- [facility]--
--- NOTE | 2019-05-03 15:51 | NUR ---
ANTICIPATED DISCHARGE PLANNED TO HOSPICE HOUSE. PENDING BED AVAILABILITAY. [facility] PCS FORM COMPLETED AND FAXED TO [facility] DISPATCH. COMPLETED PCS FORM PROVIDED TO UNIT RN. CALL PLACED TO UNIT, SPOKE TO MATT GUTIERREZ NOTIFIED OF [facility] FORM COMPLETION AND TO PLACE ON PATIENTS CHART FOR TRANSPORTATION PURPOSES. MATT NOTIFIED OF POSSIBLE DISCHARGE TO [facility] THIS EVENING, PENDING BED.
--- NOTE | 2019-05-03 16:19 | NUR ---
ASSUMED CARE APPROX 0700. PT AWAKE AND LAYING IN BED. SPOUSE AND SONS AT BEDSIDE. PER DR. GAINES PT TO CONTINUE ON 1750ML FLUID RESTRICTION. [facility] AND QUALIFIED PT FOR DISCHARGE TO THEIR FACILITY TOMORROW PROVIDING A BED IS AVAILABLE. BLOOD SUGARS HAVE BEEN CONSISTENTLY ELEVATED FOR THE LAST FEW DAYS. CHANGED PT TO MODERATE SS PER PROTOCOL. PT IS PROGRESSING TOWARDS DISCHARGE GOALS.
[2019-05-03 19:51] VITALS: BP 132/90
[2019-05-04 03:46] VITALS: BP 158/99
--- NOTE | 2019-05-04 06:08 | NUR ---
PT MAKING POOR PROGRESS TOWARDS GOALS. PT SOA WITH MINOR ACTIVITY, EVEN WITH SPEAKING. O2 SAT DROPS TO MID 80'S AND TAKES SEVERAL MINUTES TO RETURN TO 90%. NOTED PT ACCEPTED TO HOSPICE HOUSE WITH [facility] TODAY.
[2019-05-04 07:42] VITALS: BP 125/86
--- NOTE | 2019-05-04 15:33 | EKG ---
[facility] [place] [address] ELECTROCARDIOGRAM REPORT Name: MICHELLE TORRES Room #: 355-P ADM IN M.R.#: [id number] Admission: 04/27/19 Attend Phys: Roman Solo MD Discharge: Date of : 49 Report #: [id number] THIS REPORT FOR: cc: Singh Armenta James A. DO Lundgren,Dustin Aldridge MD [facility] ~ THIS REPORT FOR: //name// [facility] ED Test Date: 2019-04-27 Test Time: 01:44:14 Pat Name: MICHELLE TORRES Department: Room: 249 Gender: M Chlorination Operator: suzette : 1945 Requested By: Sofia Patel Order Number: [id number] MD: Dustin Gutiérrez Measurements Intervals [place] Rate: 108 P: 17 NV: 169 QRS: 5 QRSD: 109 T: 86 QT: 344 QTc: 461 Interpretive Statements Sinus tachycardia Low voltage, extremity leads Abnormal R-wave progression, late transition Compared to ECG 01/27/2019 08:08:20 atrial premature complexes no longer present Electronically Signed On 04-27-2019 9:46:13 DELIVERY MGR by Dustin Gutiérrez [email or web address] <ELECTRONICALLY SIGNED> By: Dustin Gutiérrez MD, [facility] 04/27/19 0946 0144 0144 Dustin Gutiérrez MD, FAC /EPI
[2019-05-04 16:07] VITALS: BP 151/77
--- NOTE | 2019-05-04 16:21 | NUR ---
DEJAH reviewed chart and spoke with nursing and attending physician. Pt is stable for transfer to [facility]. DEJAH spoke with Ilana in intake at [facility], who states they do have a bed for pt and can accept pt today at 1930. Ambulance scheduled for 1929 via [facility]. DEJAH met with pt, and family at bedside to provide update. All are aware and agreeable [facility] discharge plan. Discharge orders have been faxed. Nursing to call report. DEJAH updated attending physician. No further SW needs identified at this time, but is available to assist should needs arise. [facility]-- [facility]--
--- NOTE | 2019-05-04 21:13 | NUR ---
EMS ARRIVED @2100 PT TRANSFERRED TO HOSPICE.
== END 2019-05-04 21:10 | disposition hospice, inpatient (51) | DRG 208 ==
LOC: ER 01:27 → 3W 04:12 → EROBS 04:12 → ICU 04:12 → 3W 05-01 10:17
PROVIDERS: Emergency Medicine Emergency Medical Services; Hospitalist; Internal Medicine Pulmonary Disease; Nurse Practitioner; Nurse Practitioner Family; ADMIT Internal Medicine
PROC: 02HV33Z Insertion of Infusion Device into Superior Vena Cava, Percutaneous Approach (ICD-10-PCS; principal; 2019-04-27)
PROC: 5A1945Z Respiratory Ventilation, 24-96 Consecutive Hours (ICD-10-PCS; principal; 2019-04-27)
PROC: 0BH17EZ Insertion of Endotracheal Airway into Trachea, Via Natural or Artificial Opening (ICD-10-PCS; principal; 2019-04-27)
PROC: 5A09357 Assistance with Respiratory Ventilation, Less than 24 Consecutive Hours, Continuous Positive Airway Pressure (ICD-10-PCS; principal; 2019-04-27)
DX: J96.21 Acute and chronic respiratory failure with hypoxia (principal); I50.43 Acute on chronic combined systolic (congestive) and diastolic (congestive) heart failure; I42.8 Other cardiomyopathies; J44.1 Chronic obstructive pulmonary disease with (acute) exacerbation; I13.0 Hypertensive heart and chronic kidney disease with heart failure and stage 1 through stage 4 chronic kidney disease, or unspecified chronic kidney disease; J81.1 Chronic pulmonary edema; G47.33 Obstructive sleep apnea (adult) (pediatric); F32.9 Major depressive disorder, single episode, unspecified; E78.00 Pure hypercholesterolemia, unspecified; E66.9 Obesity, unspecified; E11.51 Type 2 diabetes mellitus with diabetic peripheral angiopathy without gangrene; E78.5 Hyperlipidemia, unspecified; F17.210 Nicotine dependence, cigarettes, uncomplicated; N18.3 Chronic kidney disease, stage 3 (moderate); J96.22 Acute and chronic respiratory failure with hypercapnia; E66.01 Morbid (severe) obesity due to excess calories; E03.9 Hypothyroidism, unspecified; E87.5 Hyperkalemia; Z66 Do not resuscitate; E11.22 Type 2 diabetes mellitus with diabetic chronic kidney disease; Z51.5 Encounter for palliative care; Z68.33 Body mass index [BMI] 33.0-33.9, adult; Z95.810 Presence of automatic (implantable) cardiac defibrillator; Z82.49 Family history of ischemic heart disease and other diseases of the circulatory system; Z83.3 Family history of diabetes mellitus; Z81.8 Family history of other mental and behavioral disorders; Z71.6 Tobacco abuse counseling; Z91.14 Patient's other noncompliance with medication regimen; Z99.81 Dependence on supplemental oxygen
CPT/HCPCS: 10078; 10879; 27000